=== PATIENT | female | born 1940 | race Two or more races ===

== ENCOUNTER → 2022-02-24 08:57 | Outpatient (BNVA) | payer MEDICARE, SELFPAY | PROVIDERS: PCP Internal Medicine; Visit Provider Psychiatry & Neurology Neurology | DX: F09 Unspecified mental disorder due to known physiological condition (principal); R51.9 Headache, unspecified; F41.9 Anxiety disorder, unspecified; F32.A Depression, unspecified; G24.3 Spasmodic torticollis; G89.29 Other chronic pain | CPT/HCPCS: 99202 ==

== ENCOUNTER 2022-03-10 12:57 | Outpatient (REF) | payer MEDICARE, SELFPAY ==
--- NOTE | ~2022-03-10 | MR_ITS ---
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 Self-reported posterior neck pain. COMPARISON: None TECHNIQUE: MRI of the cervical spine was obtained using routine sequences without contrast. FINDINGS: ALIGNMENT: The cervical spine is anatomically aligned. No spondylolisthesis or retrolisthesis. CRANIOCERVICAL JUNCTION/C1-C2 ARTICULATIONS: Intact and aligned. VISUALIZED INTRACRANIAL STRUCTURES: Within normal limits. VERTEBRAL BODIES: Normal height. DISC SPACES AND ENDPLATES: Moderate to severe intervertebral disc space height loss noted between C4-C5 and C6-C7 inclusive, with disc desiccation and kiiy-tm-sygreesq degrees of anterior marginal spondylosis and tiny Schmorl's nodes. Mild disc space height loss at C7-T1 with disc desiccation with similar findings at C3-C4 and C2-C3. BONE MARROW: No significant marrow-replacing process or bone marrow edema. SPINAL LEVELS: C2-C3: Shallow central disc protrusion noted without cord impingement or canal stenosis. Mild uncinate process spurring on the right with mild right-sided neural foraminal narrowing. C3-C4: Tiny central disc protrusion with minimal indentation of the ventral thecal sac without cord impingement or canal stenosis. Minor uncovertebral spurring noted without significant neural foraminal stenosis. C4-C5: Broad-based disc osteophyte complex noted, with effacement of the ventral dural sac abutting the ventral aspect of the spinal cord with mild ventral cord impingement. Nhqt-dg-wvrixvgo central spinal canal stenosis is noted. Bilateral uncovertebral spurring is noted with mild facet arthropathy bilaterally with moderate bilateral neural foraminal stenosis. C5-C6: Broad-based central disc protrusion and posterolateral disc osteophyte complex noted with effacement of the ventral dural sac resulting in moderate ventral cord impingement and moderate central spinal canal stenosis. Bilateral uncovertebral spurring is noted with minor facet arthropathy, with severe left-sided and moderate right-sided neural foraminal stenosis. C6-C7: Broad-based central disc protrusion noted, with effacement of the ventral dural sac which abuts the ventral aspect of the spinal cord, minimally indenting the ventral spinal cord with mild central spinal canal stenosis. There is bilateral uncovertebral spurring noted with moderate right-sided and moderate to severe left-sided neural foraminal stenosis. C7-T1: Small central extruded disc herniation noted with slight caudal migration and mild flattening of the central dural sac without cord impingement. No significant spinal canal stenosis. There is uncovertebral spurring bilaterally and there is a small right subarticular extruded disc herniation with slight cephalad migration. There is mild left-sided facet arthropathy with mild left-sided and xhow-cx-gvkehmez right-sided neural foraminal stenosis. T1-T2: Small, shallow central disc protrusion noted with minimal indentation of the ventral thecal sac without cord impingement or canal stenosis. There is a right subarticular extruded disc herniation with mild cephalad migration likely impinging on the exiting right T1 nerve root, best visualized on image 10 of series 3 and 4. SPINAL CORD: The cervical and visualized upper thoracic spinal cord is normal in signal intensity throughout, without focal lesion, edema or syrinx. EXTRACRANIAL SOFT TISSUES: The visualized extracranial head/neck soft tissues are unremarkable within the limitations of the study. MR/MR cervical spine wo con IMPRESSION: 1. Multilevel DDD and spondylosis, as described above, with multilevel disc herniations and disc osteophyte complexes. There is multilevel ventral cord impingement, most apparent at C5-C6 with moderate spinal canal stenosis at C5-C6, mild spinal canal stenosis at C6-C7 and offw-gp-cfarhkdd spinal canal stenosis at C4-C5. 2. Multilevel DJD as described above, with multilevel bilateral neural foraminal stenosis as detailed by level above. 3. Right subarticular extruded disc herniations at T1-T2 and C7-T1 possibly encroaching on the exiting right C8 and T1 nerve roots.
== END 2022-03-10 12:58 | disposition home or self-care (01) ==
LOC: HO.MRI 12:57
PROVIDERS: Visit Provider Psychiatry & Neurology Neurology
DX: M54.2 Cervicalgia (principal); R51.9 Headache, unspecified; G89.29 Other chronic pain; R29.2 Abnormal reflex; G24.3 Spasmodic torticollis
CPT/HCPCS: 72141

== ENCOUNTER → 2022-05-03 09:32 | Outpatient (BNVA) | payer MEDICARE, SELFPAY | PROVIDERS: PCP Internal Medicine; Visit Provider Psychiatry & Neurology Neurology | DX: F09 Unspecified mental disorder due to known physiological condition (principal); F41.9 Anxiety disorder, unspecified; F32.A Depression, unspecified; G24.3 Spasmodic torticollis; R51.9 Headache, unspecified; G89.29 Other chronic pain | CPT/HCPCS: 99212 ==

== ENCOUNTER → 2022-07-13 14:59 | Outpatient (BNVA) | payer MEDICARE, SELFPAY | PROVIDERS: PCP Internal Medicine; Visit Provider Psychiatry & Neurology Neurology | DX: F09 Unspecified mental disorder due to known physiological condition (principal); F41.9 Anxiety disorder, unspecified; F32.A Depression, unspecified; G24.3 Spasmodic torticollis; R51.9 Headache, unspecified; G89.29 Other chronic pain | CPT/HCPCS: 99212 ==

== ENCOUNTER → 2022-10-19 11:27 | Outpatient (BNVA) | payer MEDICARE, SELFPAY | PROVIDERS: PCP Internal Medicine; Visit Provider Psychiatry & Neurology Neurology | DX: G24.3 Spasmodic torticollis (principal); G89.29 Other chronic pain; R51.9 Headache, unspecified | CPT/HCPCS: 64616; 99211; J0585 ==

== ENCOUNTER → 2022-11-24 13:49 | Outpatient (BNVA) | payer MEDICARE, SELFPAY | PROVIDERS: PCP Internal Medicine; Visit Provider Psychiatry & Neurology Neurology | DX: G24.3 Spasmodic torticollis (principal); R51.9 Headache, unspecified; F09 Unspecified mental disorder due to known physiological condition; G89.29 Other chronic pain | CPT/HCPCS: 99212 ==

== ENCOUNTER → 2023-01-24 15:57 | Outpatient (BNVA) | payer MEDICARE, SELFPAY | PROVIDERS: PCP Internal Medicine; Visit Provider Psychiatry & Neurology Neurology | DX: G24.3 Spasmodic torticollis (principal); R51.9 Headache, unspecified; F09 Unspecified mental disorder due to known physiological condition; G89.29 Other chronic pain | CPT/HCPCS: 64616; 99211; J0585 ==

== ENCOUNTER 2023-05-10 13:56 | Outpatient (AMB) | payer MEDICARE, SELFPAY ==
--- NOTE | 2023-05-10 13:59 | MHC.OFFVIS ---
Intake Vital Signs 05/10/23 14:04 Height 5 ft 4 in Weight 116 lb BMI 19.9 BP 150/80 H Blood Pressure Location Lt brachial Position Sitting Pulse 76 Pulse Source Pulse Oximeter Pulse Oximetry (%) 98 Oxygen Delivery Method Room Air Intake Visit Reasons: Botox-lvm Intake Note: Pt presents today for botox Allergies No Known Allergies Allergy (Verified 05/10/23 14:06) Medication List - Last Reconciled 05/10/23 by Porsche Langston MD amlodipine 5 mg PO DAILY baclofen 20 mg (2 x 10 mg) PO BEDTIME cholecalciferol (vitamin D3) 50 mcg PO DAILY citalopram 40 mg PO DAILY gabapentin 300 mg (3 x 100 mg) PO DAILY lisinopril 20 mg PO DAILY magnesium oxide 400 mg PO DAILY memantine 28 mg PO DAILY onabotulinumtoxinA (Botox) to be injected by physician to neck muscles q 3 mths; HPI HPI Comments History of Present Illness Details 82y/o female comes for treatment of her cervical dystonia ? Side effects including spread of toxin effect, dysphagia, breathing difficulties , bronchitis etc was discussed in detail and the patient agreed to the procedure.An informed consent was obtained ??? Botulinum toxin type A 200units X 1 -was diluted with 4 cc of normal saline at a concentration of 25 units in 0.5cc saline. Lot number [id number] expiration 09/2025 ??? Muscles injected ??? chance Splenius - 25 units each ??? Chance levator 25 units each Chance trapezius 20 units each Chance semispinalis 5 unist each Chance temporlais 25 units each ? Total used 200 units PFSH Medical History Cervical spondylosis Osteopenia HTN (hypertension) Sacroiliitis Osteopenia Hyperlipidemia Diabetes Vulvar itching Hearing loss Anxiety Depression Subarachnoid hemorrhage Colloid cyst of third ventricle Vertigo FH: cholecystectomy Surgical History Hx of appendectomy H/O colonoscopy Family History Mother Diabetes Father Diabetes Sister FHx: stomach cancer Social History Alcohol intake: never Patient Tobacco Use Status: Never used Tobacco Physical Exam Vital Signs: Last Vital Signs Pulse 76 05/10/23 14:04 BP 150/80 H 05/10/23 14:04 Pulse Ox 98 05/10/23 14:04 Oxygen Delivery Method Room Air 05/10/23 14:04 BMI result Body Mass Index 19.9 Const General: cooperative, healthy appearing and anxious Nutritional Appearance: average body habitus HEENT Head: Yes normal to inspection, Yes normocephalic and Yes atraumatic Eyes Pupils: Equal, round and reactive pupils present Neck Other: dystonia severe tightness and tenderness in left splenius, levator Neuro Other: Cranial nerves: Yes CN's II-XII intact bilaterally, Yes Facial sensation intact/muscles of mastication intact, Yes Equal, round and reactive pupils present, Yes Bilaterally intact EOM present, Yes Normal facial strength present and Yes Midline tongue present Gait exam (Neuro): Other gait observations present (slow mild off balance) Coordination: jdafio-uv-yvlb test normal Psych Affect: Anxious affect present Office Procedures Botulinum toxin Injection 56542 - Dystonia Procedure code (CPT) selection complete Office Meds onabotulinumtoxinA 200 unit solution for injection Performing Provider: Porsche Langston MD Performing Location: [facility] [place] [facility] Administered by: Porsche Langston MD on 05/10/23 14:32 Dose Route Admin Location Dispensed Lot Number Expiration Date [facility] Senior Scheduler 200 unit IM 200 units [id number] 09/06/25 2914-0957-58 [employer]ER[employer]/BOTOX Comments: see HPI Assessment & Plan Assessment & Plan (1) 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 (2) Chronic headaches: Comment: likely cervicogenic Code(s): R51.9 - Headache, unspecified; G89.29 - Other chronic pain (3) 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 early dementia Code(s): F09 - Unspecified mental disorder due to known physiological condition Plan Patient tolerated the procedure well She will call with ay side effects Increase memantine to Xr 28mg qd Orders: Orders AMB Botulinum toxin Injection Today G24.3 - Spasmodic torticollis Coding Level of Care Code Est Pt Level 1 (94174) Diagnoses Spasmodic torticollis G24.3 Chronic headaches R51.9; G89.29 Cognitive disorder F09 CPT Codes Botox Injection - Botox 4: 95567 - Dystonia ([id number])
[2023-05-10 14:04] VITALS: BP 150/80; PULSE 76; O2SAT 98; BMI 19.9
== END 2023-05-10 14:28 | disposition home or self-care (01) ==
PROVIDERS: PCP Internal Medicine; Visit Provider Psychiatry & Neurology Neurology
DX: G24.3 Spasmodic torticollis (principal); R51.9 Headache, unspecified; G89.29 Other chronic pain; R41.89 Other symptoms and signs involving cognitive functions and awareness
CPT/HCPCS: 64616

== ENCOUNTER → 2023-05-10 13:56 | Outpatient (BNVA) | payer MEDICARE, SELFPAY | PROVIDERS: PCP Internal Medicine; Visit Provider Psychiatry & Neurology Neurology | DX: G24.3 Spasmodic torticollis (principal); M47.812 Spondylosis without myelopathy or radiculopathy, cervical region; R51.9 Headache, unspecified; G89.29 Other chronic pain; F09 Unspecified mental disorder due to known physiological condition | CPT/HCPCS: 64616; 99211; J0585 ==

== ENCOUNTER 2023-09-10 14:17 | Outpatient (AMB) | payer MEDICARE, SELFPAY ==
--- NOTE | 2023-09-10 14:25 | MHC.OFFVIS ---
Intake Vital Signs 09/10/23 14:26 Height 5 ft 4 in Weight 116 lb BMI 19.9 BP 104/56 L Blood Pressure Location Lt brachial Position Sitting Respiration 7 L Pulse 63 Pulse Source Pulse Oximeter Pulse Oximetry (%) 98 Oxygen Delivery Method Room Air Intake Visit Reasons: Botox - CONF Intake Note: Pt presents to the office for Botox injections. Forming Tube Selector Required: No Allergies No Known Allergies Allergy (Verified 09/10/23 14:49) Medication List - Last Reconciled 09/10/23 by Porsche Langston MD amlodipine 5 mg PO DAILY cholecalciferol (vitamin D3) 50 mcg PO DAILY citalopram 40 mg PO DAILY gabapentin 300 mg (3 x 100 mg) PO DAILY lisinopril 20 mg PO DAILY magnesium oxide 400 mg PO DAILY memantine 28 mg PO DAILY onabotulinumtoxinA (Botox) to be injected by physician to neck muscles q 3 mths; HPI HPI Comments History of Present Illness Details 82y/o female comes for follow up of neck pain, vertigo and headaches. she is accompanied by her daughter who helps with the history. she was trailed on botox to her neck muscle with no response. she is here for another session but says she had no response to her previous treatments. Her MRI C spine form 2021 showed multilevel deg changes with mild cord impingement.She started noticing short term memory issues about 1 year ago. she also has h/o vertigo and headaches. The headaches have increased recently.The headaches are mostly frontal and neck pain.she feels like pounding , with tinnitus, nausea. No light or noise sensitivity She has daily headaches and takes tylenol or motrin.. PFSH Medical History Cervical spondylosis Osteopenia HTN (hypertension) Sacroiliitis Osteopenia Hyperlipidemia Diabetes Vulvar itching Hearing loss Anxiety Depression Subarachnoid hemorrhage Colloid cyst of third ventricle Vertigo FH: cholecystectomy Surgical History Hx of appendectomy H/O colonoscopy Family History Mother Diabetes Father Diabetes Sister FHx: stomach cancer Social History Alcohol intake: never Patient Tobacco Use Status: Never used Tobacco Physical Exam Vital Signs: Last Vital Signs Pulse 63 09/10/23 14:26 Resp 7 L 09/10/23 14:26 BP 104/56 L 09/10/23 14:26 Pulse Ox 98 09/10/23 14:26 Oxygen Delivery Method Room Air 09/10/23 14:26 BMI result Body Mass Index 19.9 Const General: cooperative, healthy appearing and anxious Nutritional Appearance: average body habitus HEENT Head: Yes normal to inspection, Yes normocephalic and Yes atraumatic Eyes Pupils: Equal, round and reactive pupils present Neck Other: dystonia severe tightness and tenderness in left splenius, levator Neuro Other: Cranial nerves: Yes CN's II-XII intact bilaterally, Yes Facial sensation intact/muscles of mastication intact, Yes Equal, round and reactive pupils present, Yes Bilaterally intact EOM present, Yes Normal facial strength present and Yes Midline tongue present Gait exam (Neuro): Other gait observations present (slow mild off balance) Coordination: qtgghz-yo-akrz test normal Psych Affect: Anxious affect present Assessment & Plan Assessment & Plan (1) 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 (2) Chronic headaches: Comment: likely cervicogenic Code(s): R51.9 - Headache, unspecified; G89.29 - Other chronic pain (3) 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 early dementia Code(s): F09 - Unspecified mental disorder due to known physiological condition Plan Memantine to Xr 28mg qd Increase gabapentin 300mg bid Pain management refferal Orders: Referrals Pain Management Referral M47.812 - Spondylosis without myelopathy or radiculopathy, cervical region, M54.2 - Cervicalgia Medications: Changed From gabapentin 300 mg (3 x 100 mg) PO DAILY 90 caps 3RF To gabapentin 300 mg (3 x 100 mg) PO BID 180 caps 3RF Discontinued baclofen Discontinued Reason: Patient no longer taking 20 mg (2 x 10 mg) PO BEDTIME 60 tabs 6RF Coding Level of Care Code Est Pt Level 4 (73904) Diagnoses Spasmodic torticollis G24.3 Chronic headaches R51.9; G89.29 Cognitive disorder F09
[2023-09-10 14:26] VITALS: BP 104/56; PULSE 63; RESP 7; O2SAT 98; BMI 19.9
== END 2023-09-10 15:15 | disposition home or self-care (01) ==
PROVIDERS: PCP Internal Medicine; Visit Provider Psychiatry & Neurology Neurology
DX: G24.3 Spasmodic torticollis (principal); R51.9 Headache, unspecified; G89.29 Other chronic pain; G31.84 Mild cognitive impairment of uncertain or unknown etiology
CPT/HCPCS: 99214

== ENCOUNTER → 2023-09-10 14:17 | Outpatient (BNVA) | payer MEDICARE, SELFPAY | PROVIDERS: PCP Internal Medicine; Visit Provider Psychiatry & Neurology Neurology | DX: G24.3 Spasmodic torticollis (principal); G89.29 Other chronic pain; R51.9 Headache, unspecified; F09 Unspecified mental disorder due to known physiological condition; Z79.899 Other long term (current) drug therapy | CPT/HCPCS: 99212 ==

== ENCOUNTER 2023-09-19 14:49 | Outpatient (AMB) | payer MEDICARE, SELFPAY ==
--- NOTE | 2023-09-19 14:59 | A.OFFVIS_ITS ---
Intake Vital Signs 09/19/23 15:01 Height 5 ft 4 in Weight 112 lb 4 oz BMI 19.3 BP 113/54 L Blood Pressure Location Lt brachial Position Sitting Respiration 14 Pulse 68 Pulse Source Pulse Oximeter Pulse Oximetry (%) 98 Oxygen Delivery Method Room Air Intake Visit Reasons: CERVICALGIA - Confirmed Allergies No Known Allergies Allergy (Verified 09/19/23 14:58) HPI HPI Comments History of Present Illness Details Ilsa is a very pleasant 82-year-old [place]ic-speaking female who presents the office today, accompanied by her daughter, for evaluation and management of her chronic neck pain. Patient has been suffering with this pain for greater than 5 years. She was referred here from Neurology where she has undergone serial injections of Botox without improvement of her pain. She also complains of chronic, constant daily headaches and dizziness. Denies any chest pain, syncope, unilateral weakness or palpitations. Denies any recent falls. She is currently taking Tylenol as needed for the headaches with minimal improvement. She is tried muscle relaxers, gabapentin and nonsteroidal anti-inflammatory medication in the past without improvement of her symptoms. Patient reports that the symptoms improve only when she is lying down, her daughter is concerned that she is not very active due to the pain and she has also not been eating much because of the pain and dizziness. Patient denies numbness weakness or tingling of either upper extremity. Pain today is rated as a 10/10. Dizziness worsens when patient stands, she will close her eyes and this helps a little bit with the dizziness. She is unable to detail if it feels like she is spinning or if the room is spinning. In terms of muscle damage condition is described as aching, shooting, numb, stabbing, sharp, shocking, tingling, pins and needles. Pain is negatively impacting patient's enjoyment of life, general activity, mood and walking. PFSH Medical History Cervical spondylosis Osteopenia HTN (hypertension) Sacroiliitis Osteopenia Hyperlipidemia Diabetes Vulvar itching Hearing loss Anxiety Depression Subarachnoid hemorrhage Colloid cyst of third ventricle Vertigo FH: cholecystectomy Surgical History Hx of appendectomy H/O colonoscopy Family History Mother Diabetes Father Diabetes Sister FHx: stomach cancer Social History Alcohol intake: never Patient Tobacco Use Status: Never used Tobacco Review of Systems Const All systems reviewed & are unremarkable except as noted in HPI and below Physical Exam Vital Signs: Last Vital Signs Pulse 68 09/19/23 15:01 Resp 14 09/19/23 15:01 BP 113/54 L 09/19/23 15:01 Pulse Ox 98 09/19/23 15:01 Oxygen Delivery Method Room Air 09/19/23 15:01 BMI result Body Mass Index 19.3 General: awake, alert, answers questions appropriately. appears uncomfortable. Skin: warm, dry, intact HEENT: Normocephalic. Hearing intact. Cardiac: External chest normal in appearance. Respiratory: No cough, audible wheezing or stridor. Abdomen: without gross distension. MS: No obvious swelling or deformities. Limited cervical range of motion all planes with moderate pain increase Spurling positive RUE strength 5/5, 2+ biceps reflex, 2+ brachioradialis reflex LUE strength 5/5, 2+ biceps reflex, 2+ brachioradialis reflex Neurological: Thought process intact. Ambulates with assistance from daughter Results Reviewed Results Reviewed: 03/10/2022: MRI Cervical Spine FINDINGS: ALIGNMENT: The cervical spine is anatomically aligned. No spondylolisthesis or retrolisthesis. CRANIOCERVICAL JUNCTION/C1-C2 ARTICULATIONS: Intact and aligned. VISUALIZED INTRACRANIAL STRUCTURES: Within normal limits. VERTEBRAL BODIES: Normal height. DISC SPACES AND ENDPLATES: Moderate to severe intervertebral disc space height loss noted between C4-C5 and C6-C7 inclusive, with disc desiccation and pemh-ee-gkleccal degrees of anterior marginal spondylosis and tiny Schmorl's nodes. Mild disc space height loss at C7-T1 with disc desiccation with similar findings at C3-C4 and C2-C3. BONE MARROW: No significant marrow-replacing process or bone marrow edema. SPINAL LEVELS: C2-C3: Shallow central disc protrusion noted without cord impingement or canal stenosis. Mild uncinate process spurring on the right with mild right-sided neural foraminal narrowing. C3-C4: Tiny central disc protrusion with minimal indentation of the ventral thecal sac without cord impingement or canal stenosis. Minor uncovertebral spurring noted without significant neural foraminal stenosis. C4-C5: Broad-based disc osteophyte complex noted, with effacement of the ventral dural sac abutting the ventral aspect of the spinal cord with mild ventral cord impingement. Wpcw-qa-hkebwcrm central spinal canal stenosis is noted. Bilateral uncovertebral spurring is noted with mild facet arthropathy bilaterally with moderate bilateral neural foraminal stenosis. C5-C6: Broad-based central disc protrusion and posterolateral disc osteophyte complex noted with effacement of the ventral dural sac resulting in moderate ventral cord impingement and moderate central spinal canal stenosis. Bilateral uncovertebral spurring is noted with minor facet arthropathy, with severe left-sided and moderate right-sided neural foraminal stenosis. C6-C7: Broad-based central disc protrusion noted, with effacement of the ventral dural sac which abuts the ventral aspect of the spinal cord, minimally indenting the ventral spinal cord with mild central spinal canal stenosis. There is bilateral uncovertebral spurring noted with moderate right-sided and moderate to severe left-sided neural foraminal stenosis. C7-T1: Small central extruded disc herniation noted with slight caudal migration and mild flattening of the central dural sac without cord impingement. No significant spinal canal stenosis. There is uncovertebral spurring bilaterally and there is a small right subarticular extruded disc herniation with slight cephalad migration. There is mild left-sided facet arthropathy with mild left-sided and udds-qn-eflzxrxy right-sided neural foraminal stenosis. T1-T2: Small, shallow central disc protrusion noted with minimal indentation of the ventral thecal sac without cord impingement or canal stenosis. There is a right subarticular extruded disc herniation with mild cephalad migration likely impinging on the exiting right T1 nerve root, best visualized on image 10 of series 3 and 4. SPINAL CORD: The cervical and visualized upper thoracic spinal cord is normal in signal intensity throughout, without focal lesion, edema or syrinx. EXTRACRANIAL SOFT TISSUES: The visualized extracranial head/neck soft tissues are unremarkable within the limitations of the study. IMPRESSION: 1. Multilevel DDD and spondylosis, as described above, with multilevel disc herniations and disc osteophyte complexes. There is multilevel ventral cord impingement, most apparent at C5-C6 with moderate spinal canal stenosis at C5-C6, mild spinal canal stenosis at C6-C7 and pqgp-hj-ligphulx spinal canal stenosis at C4-C5. 2. Multilevel DJD as described above, with multilevel bilateral neural foraminal stenosis as detailed by level above. 3. Right subarticular extruded disc herniations at T1-T2 and C7-T1 possibly encroaching on the exiting right C8 and T1 nerve roots. Assessment & Plan Assessment & Plan (1) Dizziness: Code(s): R42 - Dizziness and giddiness (2) Cervical spondylosis: Code(s): M47.812 - Spondylosis without myelopathy or radiculopathy, cervical region (3) Chronic headaches: Comment: likely cervicogenic Code(s): R51.9 - Headache, unspecified; G89.29 - Other chronic pain (4) Cervical spinal stenosis: Code(s): M48.02 - Spinal stenosis, cervical region Irene Rosenbaum is a very pleasant 82-year-old female who presented to the office today for evaluation and management of her chronic neck pain and headaches. MRI from March 2022 reviewed, given patient's additional complaints of severe, worsening headaches and dizziness will order MRI/MRA head and neck to further evaluate. Concern for potential narrowing of arteries. Meclizine 12.5mg po TID as needed for dizziness Tizanidine 2mg po TID as needed, patient and daughter advised on cautions for use. After review of MRI will consider fluoroscopy guided diagnostic C4-C5 C6 MBBs with local anesthetic versus referral to neuro spine for evaluation. All questions and concerns are answered, patient and daughter agree with the plan. Follow-up after MRI/MRA. Orders: Orders MR cervical spine wo con Today G89.29 - Other chronic pain, M47.812 - Spondylosis without myelopathy or radiculopathy, cervical region, M48.02 - Spinal stenosis, cervical region, R42 - Dizziness and giddiness, R51.9 - Headache, unspecified MR angio neck wo/w con Today G89.29 - Other chronic pain, M47.812 - Spondylosis without myelopathy or radiculopathy, cervical region, M48.02 - Spinal stenosis, cervical region, R42 - Dizziness and giddiness, R51.9 - Headache, unspecified MR angio head wo/w con Today G89.29 - Other chronic pain, M48.02 - Spinal stenosis, cervical region, R42 - Dizziness and giddiness, R51.9 - Headache, unspecified Medications: New tizanidine may cause drowsiness 2 mg PO TID PRN 90 tabs 0RF muscle spasticity meclizine 12.5 mg PO TID PRN 30 tabs 0RF dizziness Coding Level of Care Code New Pt Level 4 (52154) Diagnoses Dizziness R42 Cervical spondylosis M47.812 Chronic headaches R51.9; G89.29 Cervical spinal stenosis M48.02
[2023-09-19 15:01] VITALS: BP 113/54; PULSE 68; RESP 14; O2SAT 98; BMI 19.3
== END 2023-09-19 15:35 | disposition home or self-care (01) ==
PROVIDERS: PCP Internal Medicine; Referring Provider Psychiatry & Neurology Neurology; Visit Provider Registered Nurse Emergency
DX: R42 Dizziness and giddiness (principal); M47.812 Spondylosis without myelopathy or radiculopathy, cervical region; R51.9 Headache, unspecified; G89.29 Other chronic pain; M48.02 Spinal stenosis, cervical region
CPT/HCPCS: 99204

== ENCOUNTER → 2023-09-19 14:49 | Outpatient (BNVA) | payer MEDICARE, SELFPAY | PROVIDERS: PCP Internal Medicine; Referring Provider Psychiatry & Neurology Neurology; Visit Provider Registered Nurse Emergency | DX: M48.02 Spinal stenosis, cervical region (principal); M47.812 Spondylosis without myelopathy or radiculopathy, cervical region; R42 Dizziness and giddiness; R51.9 Headache, unspecified; G89.29 Other chronic pain | CPT/HCPCS: 99202 ==

== ENCOUNTER 2023-10-24 15:01 | Outpatient (AMB) | payer MEDICARE, SELFPAY ==
[2023-10-24 15:07] VITALS: BP 103/47; PULSE 66; RESP 12; O2SAT 99; BMI 19.2
--- NOTE | 2023-10-24 15:07 | A.OFFVIS_ITS ---
Intake Vital Signs 10/24/23 15:07 Height 5 ft 4 in Weight 112 lb BMI 19.2 BP 103/47 L Blood Pressure Location Lt brachial Position Sitting Respiration 12 Pulse 66 Pulse Source Pulse Oximeter Pulse Oximetry (%) 99 Oxygen Delivery Method Room Air Intake Visit Reasons: MRI results Per. Hui Juarez Allergies No Known Allergies Allergy (Verified 10/24/23 15:08) Medication List - Last Reconciled 10/24/23 by Lilibeth Garner LPN celecoxib mg PO cholecalciferol (vitamin D3) 50 mcg PO DAILY citalopram 40 mg PO DAILY gabapentin 300 mg (3 x 100 mg) PO BID lisinopril 20 mg PO DAILY magnesium oxide 400 mg PO DAILY memantine 28 mg PO DAILY rosuvastatin 10 mg PO BEDTIME HPI HPI Comments History of Present Illness Details Ilsa is back in my office to evaluate the results of the MRI. The results of the MRI dictated as below. We sent her for MRA of the brain as well as MRI of the cervical spine. The patient's complains are on dizziness and upper posterior neck pain with radiation to the back of the head and into the occipital area. The MRI were discussed with the patient and her daughter today. The patient's daughter helped to interpret details of the conversation to the patient although the patient is herself able to speak minimal Fijian as well. On the MRI of the brain there is normal blood distribution. Therefore it is unlikely that brain ischemia such as TIA is a result of the patient's dizziness. Referral to ENT with dizziness symptoms maybe necessary to establish a proper cause of the condition. As of the MRI of the cervical spine most of the changes are described in C6-C7 and C5-C6 intervals. This is the lowest part of the cervical spine. The patient's complaint is mostly on the pain in the upper neck with radiation to the occipital area the pain is bilateral. There is no description of the joint conditions in the report of the MRI however the patient reports pain aggravation with flexing head forward and even more so flexing had backwards. She also reports pain aggravation with axial compression on the head. I believe that the major cause of patient's cervicalgia and occipital neuralgia is cervical facets C2-C3 and C3-C4 bilateral. I offered this patient bilateral diagnostic injection MBB C2, C3, C4. The patient agreed to go for the procedure. As of significant bilateral foraminal stenosis at C5-C6 and C6-C7 interval I would like this patient to be seen by a neurosurgeon. On physical exam bilateral brachioradialis and bilateral triceps reflexes are very brisk, there is also difficulty with 2 point discrimination on patient's hands which could be evidence of subtle sensation changes. Unlikely this patient needs surgery at current times however in the future if her condition will become more severe possibility foraminotomy or even disc replacement could be considered. We discussed medical management with this patient. Last time she was offered meclizine 12.5 mg and she reports minimal improvement on meclizine and no side effects. We agreed that I will start her on meclizine 25 mg. I also would like to introduced again tizanidine muscle relaxant small does to provide her with some pain relief. Prior: Chronic pain for 5 years. Neurology attempted to treat her with Botox injections with no success. Denies any chest pain, syncope, unilateral weakness or palpitations. Denies any recent falls. Tylenol gave patient minimal relief improvement. She is tried muscle relaxers, gabapentin and nonsteroidal anti-inflammatory medication in the past without improvement of her symptoms. Patient reports that the symptoms improve only when she is lying down, her daughter is concerned that she is not very active due to the pain and she has also not been eating much because of the pain and dizziness. Patient denies numbness weakness or tingling of either upper extremity. Dizziness worsens when patient stands, she will close her eyes and this helps a little bit with the dizziness. She is unable to detail if it feels like she is spinning or if the room is spinning. In terms of muscle damage condition is described as aching, shooting, numb, stabbing, sharp, shocking, tingling, pins and needles. Pain is negatively impacting patient's enjoyment of life, general activity, mood and walking. [facility] Medical History Cervical spondylosis Osteopenia HTN (hypertension) Sacroiliitis Osteopenia Hyperlipidemia Diabetes Vulvar itching Hearing loss Anxiety Depression Subarachnoid hemorrhage Colloid cyst of third ventricle Vertigo FH: cholecystectomy Surgical History Hx of appendectomy H/O colonoscopy Family History Mother Diabetes Father Diabetes Sister FHx: stomach cancer Social History Alcohol intake: never Patient Tobacco Use Status: Never used Tobacco Review of Systems Const All systems reviewed & are unremarkable except as noted in HPI and below Physical Exam Vital Signs: Last Vital Signs Pulse 66 10/24/23 15:07 Resp 12 10/24/23 15:07 BP 103/47 L 10/24/23 15:07 Pulse Ox 99 10/24/23 15:07 Oxygen Delivery Method Room Air 10/24/23 15:07 BMI result Body Mass Index 19.2 General: awake, alert, answers questions appropriately. appears uncomfortable. Skin: warm, dry, intact HEENT: Normocephalic. Hearing intact. Cardiac: External chest normal in appearance. Respiratory: No cough, audible wheezing or stridor. Abdomen: without gross distension. MS: No obvious swelling or deformities. Limited cervical range of motion all planes with moderate pain increase Spurling positive RUE strength 5/5, 2+ biceps reflex, 2+ brachioradialis reflex LUE strength 5/5, 2+ biceps reflex, 2+ brachioradialis reflex Two point discrimination is difficult for the patient on bilateral hands in distribution of C6 and C7 nerve roots. Neurological: Thought process intact. Ambulates with assistance from daughter Results Reviewed Results Reviewed: MRI brain with and without contrast MRI of the brain and the neck with and without contrast. Brain the bilateral internal carotid arteries are normal in course and caliber throughout there horizontal vertical cavernous and supra clinoidal segment The bilateral anterior cerebral arteries and their branch vessels are of normal course and caliber. The bilateral middle cerebral arteries and their branch vessels are of normal course and caliber. The bilateral posterior cerebral arteries are of normal course and caliber. The intracranial portion of the vertebrobasilar system are of normal course and caliber. There is mild scattered patchy areas of T2 prolongation within the subcortical and deep periventricular white matter suggesting of chronic microvascular ischemia reminder of the brain is unremarkable. Neck: A 3 was all arch is demonstrated. The bilateral common carotid and vertebral arteries are widely patent at their origins. The bilateral vertebral arteries are normal course and caliber throughout their extracranial portions. The bilateral common carotid arteries are of normal course and caliber. The left internal carotid artery is of normal course and caliber throughout its extracranial segments. The left external carotid artery is widely patent at its origin. The right internal carotid artery is of normal course and caliber throughout its extracranial segments. The right external carotid artery is widely patent at its origin. Impression: Unremarkable MRAs of the head and neck. There are no significant carotid stenosis by NASCET criteria. MRI cervical spine without contrast 09/24/2023 Findings normal cervical alignment is demonstrated. Vertebral heights are well- maintained. Craniocervical junction is unremarkable. Bone marrow signal is within normal limits, and no suspicious osseous lesions is identified. Prevertebral and paraspinal soft tissues are within normal limits. Visualized portions of the posterior fossa are unremarkable. Cervical cord demonstrates normal course caliber and signal characteristics. No epidural fluid collection or hematoma is identified. C2-C3: There is no significant disc herniation or protrusion. No central canal or neural foraminal stenosis. C3-C4 column there is a mild broad-based disc bulge effacing the ventral aspect of the thecal sac without abutting the cord without clinically significant central canal or neural foraminal stenosis. C4-C5: There is intervertebral disc space narrowing. Broad-based disc bulge effacing ventral aspect of thecal sac without a booking the cervical cord causing mild cervical central canal stenosis. There are large disc osteophyte complexes causing bilateral neural foraminal stenosis left worse than right encroaching upon the exiting left C5 nerve root C5-C6: There is intervertebral disc space narrowing. There is a large broad- based disc bulge effacing the ventral aspect of the thecal sac abutting the cervical cord causing moderate central canal stenosis. There are bilateral disc osteophyte complexes causing clinically significant bilateral neural foraminal stenosis encroaching upon exiting right and left C6 nerve root. C6-C7 there is intervertebral disc space narrowing. There is a large broad- based disc bulge effacing the ventral aspect of the thecal sac without a booking the cervical cord causing moderate cervical canal stenosis. There are large bilateral disc osteophyte complexes causing bilateral neural foraminal stenosis encroaching upon the exiting right and left C7 nerve roots. C7-T1 there is a mild broad-based disc bulge. No clinically significant central canal or neural foraminal stenosis. Assessment & Plan Assessment & Plan (1) Cervical spinal stenosis: Code(s): M48.02 - Spinal stenosis, cervical region (2) Dizziness: Code(s): R42 - Dizziness and giddiness (3) Cervical spondylosis: Code(s): M47.812 - Spondylosis without myelopathy or radiculopathy, cervical region (4) Neck pain: Code(s): M54.2 - Cervicalgia (5) Chronic headaches: Comment: likely cervicogenic Code(s): R51.9 - Headache, unspecified; G89.29 - Other chronic pain (6) Spondylosis of cervical joint without myelopathy: Comment: Upper cervical spine Code(s): M47.812 - Spondylosis without myelopathy or radiculopathy, cervical region (7) Spondylosis of cervical spine with radiculopathy: Comment: Lower cervical spine Code(s): M47.22 - Other spondylosis with radiculopathy, cervical region Plan: 1. I will refer this patient to ENT to rule out organic causes of dizziness. 2. I will refer this patient to neurosurgery to evaluate C6-C7 and C5-C6 bilateral foraminal stenosis. 3. I will schedule this patient for bilateral C2, C3, C4 diagnostic medial branch block. C3 PNS sprint will be offered to the patient with good results of the injection. 4. Next time we will see this patient after diagnostic medial branch block. Plan I here by testify that I spent 50 minutes discussing MRI with the daughter of the patient and patient herself, as well as evaluating patient's diagnostic reports, performing physical examination of the patient, planning this patient's care and organizing this note. Orders: Referrals Ear/Nose/Throat Referral R42 - Dizziness and giddiness Neurosurgery Referral M47.22 - Other spondylosis with radiculopathy, cervical region Medications: New meclizine 25 mg PO DAILY 30 days PRN 30 tabs 5RF motion sickness Changed From tizanidine may cause drowsiness 2 mg PO TID PRN 90 tabs 0RF muscle spasticity To tizanidine may cause drowsiness 2 mg PO TID 30 days PRN 30 tabs 5RF muscle spasticity From tizanidine may cause drowsiness 2 mg PO TID 30 days PRN 30 tabs 5RF muscle spasticity To tizanidine may cause drowsiness 2 mg PO BEDTIME 30 days PRN 30 tabs 5RF muscle spasticity Coding Level of Care Code Est Pt Level 5 (43889) Diagnoses Cervical spinal stenosis M48.02 Dizziness R42 Cervical spondylosis M47.812 Neck pain M54.2 Chronic headaches R51.9; G89.29 Spondylosis of cervical joint without myelopathy M47.812 Spondylosis of cervical spine with radiculopathy M47.22
== END 2023-10-24 16:19 | disposition home or self-care (01) ==
PROVIDERS: PCP Internal Medicine; Visit Provider Anesthesiology
DX: M48.02 Spinal stenosis, cervical region (principal); R42 Dizziness and giddiness; M47.812 Spondylosis without myelopathy or radiculopathy, cervical region; M54.2 Cervicalgia; R51.9 Headache, unspecified; G89.29 Other chronic pain; M47.22 Other spondylosis with radiculopathy, cervical region
CPT/HCPCS: 99215

== ENCOUNTER → 2023-10-24 15:01 | Outpatient (BNVA) | payer MEDICARE, SELFPAY | PROVIDERS: PCP Internal Medicine; Visit Provider Anesthesiology | DX: M48.02 Spinal stenosis, cervical region (principal); M47.812 Spondylosis without myelopathy or radiculopathy, cervical region; M54.2 Cervicalgia; M47.22 Other spondylosis with radiculopathy, cervical region; R42 Dizziness and giddiness; R51.9 Headache, unspecified; G89.29 Other chronic pain | CPT/HCPCS: 99212 ==

== ENCOUNTER 2023-11-13 14:51 | Outpatient (AMB) | payer MEDICARE, SELFPAY ==
[2023-11-13 14:57] VITALS: BP 118/72; PULSE 64; RESP 16; O2SAT 98; BMI 21.2
--- NOTE | 2023-11-13 14:57 | A.OFFVIS_ITS ---
Intake Vital Signs 11/13/23 14:57 Height 5 ft 4 in Weight 123 lb 6 oz BMI 21.2 BP 118/72 Blood Pressure Location Rt brachial Position Sitting Respiration 16 Pulse 64 Pulse Source Pulse Oximeter Pulse Oximetry (%) 98 Oxygen Delivery Method Room Air Intake Visit Reasons: follow up-LVM Intake Note: Pt presents to the office for a follow up of neck pain and headaches. Pt states she was referred to pain management at her last visit. [place] [facility] Required: No Allergies No Known Allergies Allergy (Verified 11/13/23 14:57) HPI HPI Comments History of Present Illness Details 83y/o female comes for follow up of nec k pain, vertigo and headaches. she is accompanied by her daughter who helps with the history. she was trailed on botox to her neck muscle with no response. she is here for another session but says she had no response to her previous treatments. she was seen by pain management - scheduled for bilateral C2, C3, C4 diagnostic medial branch block. C3 PNS sprint will be offered to the patient with good results of the injection. she had a neuropsych evaluation - was told she has dementia- will wait for r esults. Her MRI C spine form 2021 showed multilevel deg changes with mild cord impingement.She started noticing short term memory issues about 1 year ago. she also has h/o vertigo and headaches. The headaches have increased recently.The headaches are mostly frontal and neck pain.she feels like pounding , with tinnitus, nausea. No light or noise sensitivity She has daily headaches and takes tylenol or motrin.. PFSH Medical History Cervical spondylosis Osteopenia HTN (hypertension) Sacroiliitis Osteopenia Hyperlipidemia Diabetes Vulvar itching Hearing loss Anxiety Depression Subarachnoid hemorrhage Colloid cyst of third ventricle Vertigo FH: cholecystectomy Surgical History Hx of appendectomy H/O colonoscopy Family History Mother Diabetes Father Diabetes Sister FHx: stomach cancer Social History Alcohol intake: never Patient Tobacco Use Status: Never used Tobacco Physical Exam Vital Signs: Last Vital Signs Pulse 64 11/13/23 14:57 Resp 16 11/13/23 14:57 BP 118/72 11/13/23 14:57 Pulse Ox 98 11/13/23 14:57 Oxygen Delivery Method Room Air 11/13/23 14:57 BMI result Body Mass Index 21.2 Const General: cooperative, healthy appearing and anxious Nutritional Appearance: average body habitus HEENT Head: Yes normal to inspection, Yes normocephalic and Yes atraumatic Eyes Pupils: Equal, round and reactive pupils present Neck Other: dystonia severe tightness and tenderness in left splenius, levator Neuro Other: Cranial nerves: Yes CN's II-XII intact bilaterally, Yes Facial sensation intact/muscles of mastication intact, Yes Equal, round and reactive pupils present, Yes Bilaterally intact EOM present, Yes Normal facial strength present and Yes Midline tongue present Gait exam (Neuro): Other gait observations present (slow mild off balance) Coordination: [id number] test normal Psych Affect: Anxious affect present Assessment & Plan Assessment & Plan (1) 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 (2) Chronic headaches: Comment: likely cervicogenic Code(s): R51.9 - Headache, unspecified; G89.29 - Other chronic pain (3) 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 early dementia Code(s): F09 - Unspecified mental disorder due to known physiological condition Plan Memantine to Xr 28mg qd F/u pain management will call to discuss neuropsych report Coding Level of Care Code Est Pt Level 3 (41359) Diagnoses Spasmodic torticollis G24.3 Chronic headaches R51.9; G89.29 Cognitive disorder F09
== END 2023-11-13 15:27 | disposition home or self-care (01) ==
PROVIDERS: PCP Internal Medicine; Visit Provider Psychiatry & Neurology Neurology
DX: G24.3 Spasmodic torticollis (principal); R51.9 Headache, unspecified; G89.29 Other chronic pain; R41.89 Other symptoms and signs involving cognitive functions and awareness
CPT/HCPCS: 99213

== ENCOUNTER → 2023-11-13 14:51 | Outpatient (BNVA) | payer MEDICARE, SELFPAY | PROVIDERS: PCP Internal Medicine; Visit Provider Psychiatry & Neurology Neurology | DX: G24.3 Spasmodic torticollis (principal); R51.9 Headache, unspecified; G89.29 Other chronic pain; F09 Unspecified mental disorder due to known physiological condition | CPT/HCPCS: 99212 ==

== ENCOUNTER 2023-11-20 06:01 | Outpatient (REF) | payer MEDICARE, SELFPAY | END 2023-11-20 06:02 | disposition home or self-care (01) | LOC: CF 06:01 | PROVIDERS: Visit Provider Anesthesiology | DX: Z13.89 Encounter for screening for other disorder (principal) ==

== ENCOUNTER 2024-02-13 12:53 | Outpatient (AMB) | payer MEDICARE, SELFPAY ==
--- NOTE | 2024-02-13 13:14 | A.OFFVIS_ITS ---
Vital Signs 02/13/24 13:16 Height 5 ft 4 in Weight 131 lb 8 oz BMI 22.6 BP 116/60 Blood Pressure Location Rt brachial Position Sitting Respiration 16 Pulse 64 Pulse Source Palpation Intake Visit Reasons: BOTOX - Confirmed Intake Note: Pt presents for a 3 month follow up for chronic headaches. Negative Cutter Required: No Allergies No Known Allergies Allergy (Verified 02/13/24 13:15) Medication List - Last Reconciled 02/13/24 by Porsche Langston MD celecoxib mg PO cholecalciferol (vitamin D3) 50 mcg PO DAILY citalopram 40 mg PO DAILY gabapentin 300 mg (3 x 100 mg) PO BID lisinopril 20 mg PO DAILY magnesium oxide 400 mg PO DAILY meclizine 25 mg PO DAILY PRN 30 days meclizine 12.5 mg PO TID PRN memantine 28 mg PO DAILY minocycline 50 mg PO DAILY rosuvastatin 10 mg PO BEDTIME tizanidine 2 mg PO BEDTIME PRN 30 days tizanidine 4 mg PO BID PRN HPI Comments Details: 83y/o female comes for follow up of neck pain, vertigo and headaches. she is accompanied by her daughter who helps with the history. she was trialed on botox to her neck muscle with no response. she is here for another session but says she had no response to her previous treatments. she was seen by pain management - scheduled for bilateral C2, C3, C4 diagnostic medial branch block. C3 PNS sprint will be offered to the patient with good results of the injection.But on the day of the procedure she reported that she had no pain so was cancelled But today she reports pain in her shoulder and posterior neck . It is less frequent qod . Her MRI C spine form 2021 showed multilevel deg changes with mild cord impingement.She started noticing short term memory issues about 1 year ago. she also has h/o vertigo and headaches.3-4 /week The headaches have increased recently.The headaches are mostly frontal and neck pain.she feels like pounding , with tinnitus, nausea. No light or noise sensitivity She has daily headaches and takes tylenol or motrin.. Neuropsych testing is c/w dementia [facility] Medical History Cervical spondylosis Osteopenia HTN (hypertension) Sacroiliitis Osteopenia Hyperlipidemia Diabetes Vulvar itching Hearing loss Anxiety Depression Subarachnoid hemorrhage Colloid cyst of third ventricle Vertigo FH: cholecystectomy Surgical History Hx of appendectomy H/O colonoscopy Family History Mother Diabetes Father Diabetes Sister FHx: stomach cancer Social History Alcohol intake: never Patient Tobacco Use Status: Never used Tobacco Physical Exam Const General: cooperative, healthy appearing and anxious Nutritional Appearance: average body habitus HEENT Head: Yes normal to inspection, Yes normocephalic and Yes atraumatic Eyes Pupils: Equal, round and reactive pupils present Neck Other: dystonia severe tightness and tenderness in left splenius, levator Neuro Other: Cranial nerves: Yes CN's II-XII intact bilaterally, Yes Facial sensation intact/muscles of mastication intact, Yes Equal, round and reactive pupils present, Yes Bilaterally intact EOM present, Yes Normal facial strength present and Yes Midline tongue present Gait exam (Neuro): Other gait observations present (slow mild off balance) Coordination: [id number] test normal Psych Affect: Anxious affect present Assessment & Plan Assessment & Plan (1) 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 Category: Medical (2) Chronic headaches: Comment: likely cervicogenic Code(s): R51.9 - Headache, unspecified; G89.29 - Other chronic pain Category: Medical (3) 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 early dementia Code(s): F09 - Unspecified mental disorder due to known physiological condition Category: Medical Plan Memantine to Xr 28mg qd- reviewed neuropsych Decrease OTC pain meds Neck exercises will trial cyclobenzaprin 5mg qhs Medications: New cyclobenzaprine 5 mg PO BEDTIME 30 tabs 3RF Discontinued tizanidine may cause drowsiness Discontinued Reason: Doctor's Order 2 mg PO BEDTIME 30 days PRN 30 tabs 5RF muscle spasticity Coding Level of Care Code Est Pt Level 4 (62919) Diagnoses Spasmodic torticollis G24.3 Chronic headaches R51.9; G89.29 Cognitive disorder F09
[2024-02-13 13:16] VITALS: BP 116/60; PULSE 64; RESP 16; BMI 22.6
== END 2024-02-13 13:44 | disposition home or self-care (01) ==
PROVIDERS: PCP Internal Medicine; Visit Provider Psychiatry & Neurology Neurology
DX: G24.3 Spasmodic torticollis (principal); R51.9 Headache, unspecified; G89.29 Other chronic pain; R41.89 Other symptoms and signs involving cognitive functions and awareness
CPT/HCPCS: 99214

== ENCOUNTER → 2024-02-13 12:53 | Outpatient (BNVA) | payer MEDICARE, SELFPAY | PROVIDERS: PCP Internal Medicine; Visit Provider Psychiatry & Neurology Neurology | DX: G24.3 Spasmodic torticollis (principal); G89.29 Other chronic pain; R51.9 Headache, unspecified; F09 Unspecified mental disorder due to known physiological condition | CPT/HCPCS: 99212 ==

== ENCOUNTER 2024-08-22 14:32 | Outpatient (AMB) | payer MEDICARE, SELFPAY ==
--- NOTE | 2024-08-22 14:36 | MHC.OFFVIS ---
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 She is accompanied by her daughter who assists with [place] translation. They decline hospital provided medical interpretation. Since last visit she has completed the courses of tizanidine and meclizine. After completion of these medications her symptoms have worsened. They requesting refills of both medications at this time. Were previously scheduled for diagnostic injections, when patient arrived she was not having pain so these were canceled. They would like to proceed with injections at this time. Prior visit with Dr. Payne: Ilsa is back in my office to evaluate the results of the MRI. The results of the MRI dictated as below. We sent her for MRA of the brain as well as MRI of the cervical spine. The patient's complains are on dizziness and upper posterior neck pain with radiation to the back of the head and into the occipital area. The MRI were discussed with the patient and her daughter today. The patient's daughter helped to interpret details of the conversation to the patient although the patient is herself able to speak minimal [place] as well. On the MRI of the brain there is normal blood distribution. Therefore it is unlikely that brain ischemia such as TIA is a result of the patient's dizziness. Referral to ENT with dizziness symptoms maybe necessary to establish a proper cause of the condition. As of the MRI of the cervical spine most of the changes are described in C6-C7 and C5-C6 intervals. This is the lowest part of the cervical spine. The patient's complaint is mostly on the pain in the upper neck with radiation to the occipital area the pain is bilateral. There is no description of the joint conditions in the report of the MRI however the patient reports pain aggravation with flexing head forward and even more so flexing had backwards. She also reports pain aggravation with axial compression on the head. I believe that the major cause of patient's cervicalgia and occipital neuralgia is cervical facets C2-C3 and C3-C4 bilateral. I offered this patient bilateral diagnostic injection MBB C2, C3, C4. The patient agreed to go for the procedure. As of significant bilateral foraminal stenosis at C5-C6 and C6-C7 interval I would like this patient to be seen by a neurosurgeon. On physical exam bilateral brachioradialis and bilateral triceps reflexes are very brisk, there is also difficulty with 2 point discrimination on patient's hands which could be evidence of subtle sensation changes. Unlikely this patient needs surgery at current times however in the future if her condition will become more severe possibility foraminotomy or even disc replacement could be considered. We discussed medical management with this patient. Last time she was offered meclizine 12.5 mg and she reports minimal improvement on meclizine and no side effects. We agreed that I will start her on meclizine 25 mg. I also would like to introduced again tizanidine muscle relaxant small does to provide her with some pain relief. Prior: Chronic pain for 5 years. Neurology attempted to treat her with Botox injections with no success. Denies any chest pain, syncope, unilateral weakness or palpitations. Denies any recent falls. Tylenol gave patient minimal relief improvement. She is tried muscle relaxers, gabapentin and nonsteroidal anti-inflammatory medication in the past without improvement of her symptoms. Patient reports that the symptoms improve only when she is lying down, her daughter is concerned that she is not very active due to the pain and she has also not been eating much because of the pain and dizziness. Patient denies numbness weakness or tingling of either upper extremity. Dizziness worsens when patient stands, she will close her eyes and this helps a little bit with the dizziness. She is unable to detail if it feels like she is spinning or if the room is spinning. In terms of muscle damage condition is described as aching, shooting, numb, stabbing, sharp, shocking, tingling, pins and needles. Pain is negatively impacting patient's enjoyment of life, general activity, mood and walking. [facility] Medical History Cervical spondylosis Osteopenia HTN (hypertension) Sacroiliitis Osteopenia Hyperlipidemia Diabetes Vulvar itching Hearing loss Anxiety Depression Subarachnoid hemorrhage Colloid cyst of third ventricle Vertigo FH: cholecystectomy Surgical History Hx of appendectomy H/O colonoscopy Family History Mother Diabetes Father Diabetes Sister FHx: stomach cancer Social History Alcohol intake: never Patient Tobacco Use Status: Never used Tobacco Review of Systems Const All systems reviewed & are unremarkable except as noted in HPI and below Physical Exam Vital Signs: Last Vital Signs Pulse 72 08/22/24 14:40 BP 120/58 L 08/22/24 14:40 Pulse Ox 97 08/22/24 14:40 Oxygen Delivery Method Room Air 08/22/24 14:40 BMI result Body Mass Index 23.2 General: awake, alert, answers questions appropriately. appears uncomfortable. Skin: warm, dry, intact HEENT: Normocephalic. Hearing intact. Cardiac: External chest normal in appearance. Respiratory: No cough, audible wheezing or stridor. Abdomen: without gross distension. MS: No obvious swelling or deformities. Limited cervical range of motion all planes with moderate pain increase Spurling positive Tenderness midline cervical vertebra and cervical paraspinal muscles Neurological: Thought process intact. Ambulates with assistance from daughter Results Reviewed Results Reviewed: MRI brain with and without contrast MRI of the brain and the neck with and without contrast. Brain the bilateral internal carotid arteries are normal in course and caliber throughout there horizontal vertical cavernous and supra clinoidal segment The bilateral anterior cerebral arteries and their branch vessels are of normal course and caliber. The bilateral middle cerebral arteries and their branch vessels are of normal course and caliber. The bilateral posterior cerebral arteries are of normal course and caliber. The intracranial portion of the vertebrobasilar system are of normal course and caliber. There is mild scattered patchy areas of T2 prolongation within the subcortical and deep periventricular white matter suggesting of chronic microvascular ischemia reminder of the brain is unremarkable. Neck: A 3 was all arch is demonstrated. The bilateral common carotid and vertebral arteries are widely patent at their origins. The bilateral vertebral arteries are normal course and caliber throughout their extracranial portions. The bilateral common carotid arteries are of normal course and caliber. The left internal carotid artery is of normal course and caliber throughout its extracranial segments. The left external carotid artery is widely patent at its origin. The right internal carotid artery is of normal course and caliber throughout its extracranial segments. The right external carotid artery is widely patent at its origin. Impression: Unremarkable MRAs of the head and neck. There are no significant carotid stenosis by NASCET criteria. MRI cervical spine without contrast 09/24/2023 Findings normal cervical alignment is demonstrated. Vertebral heights are well-maintained. Craniocervical junction is unremarkable. Bone marrow signal is within normal limits, and no suspicious osseous lesions is identified. Prevertebral and paraspinal soft tissues are within normal limits. Visualized portions of the posterior fossa are unremarkable. Cervical cord demonstrates normal course caliber and signal characteristics. No epidural fluid collection or hematoma is identified. C2-C3: There is no significant disc herniation or protrusion. No central canal or neural foraminal stenosis. C3-C4 column there is a mild broad-based disc bulge effacing the ventral aspect of the thecal sac without abutting the cord without clinically significant central canal or neural foraminal stenosis. C4-C5: There is intervertebral disc space narrowing. Broad-based disc bulge effacing ventral aspect of thecal sac without a booking the cervical cord causing mild cervical central canal stenosis. There are large disc osteophyte complexes causing bilateral neural foraminal stenosis left worse than right encroaching upon the exiting left C5 nerve root C5-C6: There is intervertebral disc space narrowing. There is a large broad-based disc bulge effacing the ventral aspect of the thecal sac abutting the cervical cord causing moderate central canal stenosis. There are bilateral disc osteophyte complexes causing clinically significant bilateral neural foraminal stenosis encroaching upon exiting right and left C6 nerve root. C6-C7 there is intervertebral disc space narrowing. There is a large broad-based disc bulge effacing the ventral aspect of the thecal sac without a booking the cervical cord causing moderate cervical canal stenosis. There are large bilateral disc osteophyte complexes causing bilateral neural foraminal stenosis encroaching upon the exiting right and left C7 nerve roots. C7-T1 there is a mild broad-based disc bulge. No clinically significant central canal or neural foraminal stenosis. Assessment & Plan Assessment & Plan (1) Dizziness: Code(s): R42 - Dizziness and giddiness Category: Medical (2) Cervical spondylosis: Code(s): M47.812 - Spondylosis without myelopathy or radiculopathy, cervical region Category: Medical (3) Chronic headaches: Comment: likely cervicogenic Code(s): R51.9 - Headache, unspecified; G89.29 - Other chronic pain Category: Medical (4) Cervical spinal stenosis: Code(s): M48.02 - Spinal stenosis, cervical region Category: Medical Plan Patient presents back to the office today for follow-up neck pain Refill spent for meclizine 25 mg p.o. p.r.n. and tizanidine 2 mg p.o. p.r.n.. Patient advised on cautions for use Will schedule for fluoroscopy guided diagnostic bilateral C2-C3 C4 MBBs with local anesthetic All questions and concerns are answered, patient and daughter agree with the plan. Follow-up after procedure, sooner if needed Medications: Refilled meclizine 25 mg PO DAILY PRN 30 tabs 5RF motion sickness 30 days tizanidine may cause drowsiness 2 mg PO TID PRN 60 tabs 5RF muscle spasticity 30 days Discontinued cyclobenzaprine Discontinued Reason: Doctor's Order 5 mg PO BEDTIME 30 tabs 3RF Coding Level of Care Code Est Pt Level 3 (18462) Complex EM visit Add On G2211 Diagnoses Dizziness R42 Cervical spondylosis M47.812 Chronic headaches R51.9; G89.29 Cervical spinal stenosis M48.02
[2024-08-22 14:40] VITALS: BP 120/58; PULSE 72; O2SAT 97; BMI 23.2
== END 2024-08-22 14:57 | disposition home or self-care (01) ==
PROVIDERS: PCP Internal Medicine; Visit Provider Registered Nurse Emergency
DX: R42 Dizziness and giddiness (principal); M47.812 Spondylosis without myelopathy or radiculopathy, cervical region; R51.9 Headache, unspecified; G89.29 Other chronic pain; M48.02 Spinal stenosis, cervical region
CPT/HCPCS: 99213; G2211

== ENCOUNTER → 2024-08-22 14:32 | Outpatient (BNVA) | payer MEDICARE, SELFPAY | PROVIDERS: PCP Internal Medicine; Visit Provider Registered Nurse Emergency | DX: M47.812 Spondylosis without myelopathy or radiculopathy, cervical region (principal); M48.02 Spinal stenosis, cervical region; R42 Dizziness and giddiness; R51.9 Headache, unspecified; G89.29 Other chronic pain | CPT/HCPCS: 99212 ==

== ENCOUNTER 2024-11-04 06:10 | Outpatient (REF) | payer MEDICARE, SELFPAY ==
--- NOTE | ~2024-11-04 | FL_ITS ---
EXAMINATION: FL GUIDANCE ONLY HISTORY: M47.812 - Spondylosis without myelopathy or radiculopathy, cervical region COMPARISON: None available. TECHNIQUE: Fluoroscopy time: 0.6 minutes. Cumulative Dose: 3.44 mGy. DAP: 0.0466 mGym2 Images: 7. FINDINGS: Images demonstrate needles and contrast material in the neck bilaterally. FL/FL guidance in treatment room IMPRESSION: Fluoroscopy during procedure. Please see procedure report for additional information. Electronically signed by: Steffen Gonzales MD 11/04/2024 11:07 AM EDT
--- OUTSIDE RECORDS SUMMARY | 2024-11-04 06:13 | XMS_ITS | Clinical Summary ---
Author Organization [facility] [address] [facility] Address [address] [place] [phone] Phone Care Team Providers Care Dry Sand Molder Name Role Phone Angel Snow MD Primary Care Provider [phone] Allergies No known active allergies Medications diclofenac (VOLTAREN) 1 % topical gel Apply 4 g topically 4 times daily. 3 Active docusate sodium (COLACE) 100 mg capsule Take 100 mg by mouth 2 times daily. 0 Active gabapentin (NEURONTIN) 100 mg capsule Take 1 Capsule by mouth 3 times daily. 4 Active MAGNESIUM OXIDE ORAL TAKE 1 TABLET BY MOUTH EVERY DAY 4 Active meclizine (ANTIVERT) 12.5 mg tablet 4 Active memantine (NAMENDA XR) 28 mg extended release capsule Take 1 capsule (28 mg total) by mouth 1 (one) time each day. 3 Active minocycline (MINOCIN,DYNACI N) 50 mg capsule Take 1 capsule (50 mg total) by mouth 2 (two) times a day. 3 Active naproxen (NAPROSYN) 500 mg tablet Take 1 Tablet by mouth 2 times daily as needed for Pain. 4 Active citalopram (CeleXA) 40 mg tablet Take 1 tablet (40 mg total) by mouth 1 (one) time each day. 30 tablet 5 4 Active magnesium oxide (MAG-OX) 400 mg (241.3 elemental magnesium) tablet TAKE 1 TABLET BY MOUTH EVERY DAY 90 tablet 1 5 Active lisinopriL (PRINIVIL,ZESTR IL) 20 mg tablet Take 1 tablet (20 mg total) by mouth 1 (one) time each day. 90 tablet 1 5 Active rosuvastatin (CRESTOR) 10 mg tablet Take 1 tablet (10 mg total) by mouth 1 (one) time each day. 90 tablet 1 5 Active cholecalciferol (VITAMIN D-3) 50 mcg (2,000 unit) tablet Take 1 tablet (2,000 Units total) by mouth 1 (one) time each day. 90 tablet 1 5 Active celecoxib (CeleBREX) 50 mg capsule TAKE 1 CAPSULE BY MOUTH TWICE A DAY 180 capsule 1 5 Active QUEtiapine (SEROquel) 25 mg tablet TAKE 0.5 TABLETS BY MOUTH AT BEDTIME NEEDED FOR OTHER (INSOMNIA). 45 tablet 1 5 Active cyclobenzaprine (FLEXERIL) 5 mg tablet Take 1 tablet (5 mg total) by mouth 3 (three) times a day. 30 tablet 5 10/19/19 25 Active Problems Problem Noted Date Diagnosed Date Moderate dementia 08/19/2024 Diabetes mellitus 06/28/2024 Hyperlipidemia 06/28/2024 Vertigo 12/27/2020 Abnormal brain MRI 10/04/2020 Overview (06/28/2024): Brain MRI: 10/04/20: Rounded 8 mm fluid signal intensity structure at the roof of the 3rd ventricle. White Matter Changes. Neurosurgery consulted October 2020 who recommended repeat scan in 1 year. Episode of recurrent major depressive disorder 0 08/07/2018 Vulvar itching 01/24/2018 Overview (06/28/2024): Last Assessment & Plan: Discussed could be menopause, contact dermatitis, or autoimmune skin condition. She will return for biopsy. In the meantime, pt will use soaks and seal with coconut oil. Given a copy of [facility] guidelines to review. Hearing loss, sensorineural 06/05/2017 Overview (06/28/2024): Mild-mod b/l Osteopenia 04/06/2016 Sacroiliitis 07/27/2014 Anxiety 09/27/2009 HTN (hypertension) 09/27/2009 Overview (06/28/2024): Last Assessment & Plan: Reviewed with patient that her BP is significantly elevated today and that she needs to make an appt with her PCP to have this further evaluated and possibly meds adjusted. She understood and agreed. Referral placed to PCP. Encounters Date Type Department Care Team Description 09/04/2024 Telephone Adult Medicine [address] [phone] Angel Snow MD Family Problem 08/19/2024 3:30 PM EST Office Visit Adult Medicine [address] [phone] Angel Snow MD Diet-controlled diabetes mellitus (CMS/HCC) (Primary Dx); Pure hypercholesterolemia; Encounter for long-term (current) use of medications; Primary hypertension; Moderate dementia, unspecified dementia type, unspecified whether behavioral, psychotic, or mood disturbance or anxiety (CMS/HCC); Myofascial pain; Dystonia 08/19/2024 Telephone Adult Medicine [address] [phone] Angel Snow MD Forms/questionnaires from Last 3 Months Immunizations Name Administration Dates Next Due Influenza Quadravalent, MDCK , 0.5ml, preservative free (Flucelvax) 6mo and older 08/07/2018 Influenza Quadravalent, MDCK , 0.5ml, with preservative (Flucelvax) 6mo and older 06/05/2017 Influenza trivalent, 0.5mL (Fluad) 65yo and olde r 05/27/2019,05/04/2016 Pneumococcal conjugate 13 va lent (Prevnar 13, PCV13) 2mo and older 04/06/2016,12/30/2015 Pneumococcal polysaccharide 23 valent (Pneumovax 23) 2yo and older 05/27/2019 Zoster Live 12/30/2015 Surgical History Surgery Date Site/Laterality Comments CHOLECYSTECTOMY 2006 PROCEDURE: HISTORICAL CHOLECYSTECTOMY COLONOSCOPY 07/19/2007 PROCEDURE: [place] COLONOSCOPY FLX DX W/COLLJ SPEC WHEN PFRMD; COMMENT: Up to cecum, normal. Repeat in [address] Mancilla ESOPHAGOGASTRODUODENOSCOPY 10/12/2009 PROCEDURE: [place] EGD TRANSORAL BIOPSY SINGLE/MULTIPLE; COMMENT: Normal esophagus, gastritis-biopsy:chronic gastritis (H Pylori+), normal SB-biopsy: Nl APPENDECTOMY PROCEDURE: HISTORICAL APPENDECTOMY COLONOSCOPY 07/19/2007 PROCEDURE: HISTORICAL COLONOSCOPY; COMMENT: normal (Charo) OTHER SURGICAL HISTORY 07/26/2017 PROCEDURE: COLON CA SCRN NOT HI RSK IND; COMMENT: normal; would not repeat Medical History Medical History Date Comments Hypertension DX:Hypertension Diabetes mellitus (CMS/HCC) DX:D iabetes mellitus ([facility]) Hyperlipidemia DX:Hyperlipidemi a Anxiety DX:Anxiety Hearing loss, sensorineural 06/05/2017 DX:H earing loss, sensorineural; COMMENT: Mild-mod b/l Elevated LFTs 06/06/2017 DX:Elevated LFTs 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 (CMS/HCC) 08/07/2018 DX:Episode of recurrent abdirahman r depressive disorder ([facility]) Family History Medical History Relation Name Comments Diabetes Father Diabetes Mother Stomach cancer Sister Breast cancer Neg Hx Colon cancer Neg Hx Ovarian cancer Neg Hx Pancreatic cancer Neg Hx Prostate cancer Neg Hx Uterine cancer Neg Hx Relation Name Status Comments Father Mother Sister (Age 67) Social History Tobacco Use Types Packs/Day Years Used Date Smoking Tobacco: Never Smokeless Tobacco: Never Tobacco Cessation:Counseling Given: Not Answered Alcohol Use Standard Drinks/Week Comments No 0 (1 standard drink = 0.6 oz pur e alcohol) Comments No Sex and Gender Information Value Date Recorded Sex Assigned at Not on file Legal Sex Female 10:44 AM EST Gender Identity Not on file Sexual Orientation Not on file Obstetrics History Last Filed Vital Signs Vital Sign Reading Time Taken Comments Blood Pressure 100/60 08/19/2024 3:08 PM EST Pulse 64 08/19/2024 3:08 PM EST Temperature 36.8 ??C (98.3 ??F) 08/19/2024 3:08 PM ES T Respiratory Rate 14 08/19/2024 3:08 PM EST Oxygen Saturation - - Inhaled Oxygen Concentration - - Weight 61.2 kg (135 lb) 08/19/2024 3:08 PM EST Height 162.6 cm (5' 4 ) 08/19/2024 3:08 PM EST Body Mass Index 23.17 08/19/2024 3:08 PM EST Plan of Treatment Upcoming Encounters Date Type Department Care Team (Late st Contact Info) Description 02/23/2025 1:15 PM EDT Office Visit Adult Medicine [facility] [address] [place] [address] Angel Snow MD [address] [place] [address] Health Maintenance Due Date Last Done Comments Diabetes: Annual Foot Exam 1952 Diabetes: Annual Retina Eye Exam 1950 DTaP,Tdap,and Td Vaccines (1 - Tdap) 1961 Zoster Vaccines (2 of 3) 02/24/2016 12/30/2015 RSV Immunization Patients 60+ Years Old (1 - 1-dose 75+ series) 2017 Depression Screening 07/15/2022 Falls Risk Assessment 07/15/2022 Osteoporosis Screening (Bone Density Screening) 07/15/2022 Social Influencers of Health Screening 07/15/2022 Diabetes: Annual Urine Albumin-Creatinine Ratio (uACR) 03/16/2024 03/16/2023 COVID-19 Vaccine ( season) 2024 06/10/2021, 11/09/2020, 10/12/2020 Influenza Vaccine (#1) 2024 9, 08/07/2018, 06/05/2017, Additional history exists Diabetes: Blood Sugar Control Test (HGBA1C) 02/16/2025 08/19/2024, 02/15/2024, 02/15/2024 Diabetes: Annual GFR (Glomerular Filtration Rate) 08/19/2025 08/19/2024, 02/15/2024, 02/15/2024 Hypertension/CHF/CAD Annual BMP Blood Test 08/19/2025 08/19/2024, 02/15/2024, 02/15/2024 Cholesterol Screening (Lipid Panel) 08/19/2029 08/19/2024, 02/15/2024, 02/15/2024 Pneumococcal Vaccine: 50+ Years Completed 05/27/2019, 04/06/2016, 12/30/2015 HIB Vaccines Aged Out No longer eligi ble based on patient's age to complete this topic HPV Vaccines Aged Out No longer eligi ble based on patient's age to complete this topic Hepatitis A Vaccines Aged Out No long er eligible based on patient's age to complete this topic Hepatitis B Vaccines Aged Out No long er eligible based on patient's age to complete this topic IPV Vaccines Aged Out No longer eligi ble based on patient's age to complete this topic MMR Vaccines Aged Out No longer eligi ble based on patient's age to complete this topic Meningococcal ACWY Vaccine Aged Out N o longer eligible based on patient's age to complete this topic Meningococcal B Vacine Aged Out No lo nger eligible based on patient's age to complete this topic RSV Immunization Patients Under 20 months Aged Out No longer eligible based on patient's age to complete this topic Varicella Vaccines Aged Out No longer eligible based on patient's age to complete this topic Procedures Procedure Name Priority Date/Time Associated Diagnosis Comments HEMOGLOBIN A1C Routine 08/19/2024 4:29 PM EST Diet-controlled diabetes mellitus ([facility]) LIPID PANEL WITH REFLEX TO DIRECT LDL Routine 08/19/2024 4:29 PM EST Diet-controlled diabetes mellitus ([facility]) Pure hypercholesterolemia COMPREHENSIVE METABOLIC PANEL Routine 08/19/2024 4:29 PM EST Diet-controlled diabetes mellitus ([facility]) Encounter for long-term (current) use of medications Primary hypertension HM URINE ALBUMIN CREATININE RATIO Routine 03/16/2023 from Last 3 Months or Most Recently Relevant to Health Maintenance Results * (ABNORMAL) Lipid panel with reflex to direct LDL (08/19/2024 4:29 PM EST) Cholesterol 251(H) 0 - 200 mg/dL LAB CHEMISTRY METHOD 08/19/2024 7:47 PM EST [facility] Triglycerides 80 0 - 150 mg/dL LAB CHEMISTRY METHOD 08/19/2024 7:47 PM EST [facility] HDL 99 >=40 mg/dL LAB CHEMISTRY METHOD 08/19/2024 7:47 PM [facility] LDL Calculated 136(H) 0 - 100 mg/dL LAB CHEMISTRY METHOD 08/19/2024 7:47 PM [facility] VLDL Cholesterol Bubba 16 mg/dL LAB CHEMISTRY METHOD 08/19/2024 7:47 PM [facility] Non HDL Chol. (LDL+VLDL) 152(H) <145 mg/dL LAB CHEMISTRY METHOD 08/19/2024 7:47 PM [facility] Chol/HDL Ratio 2.5 0.0 - 4.4 LAB CHEMISTRY METHOD 08/19/2024 7:47 PM [facility] Blood Venous blood specimen / Unknown Venipuncture / Unknown 08/19/2024 4:29 PM EST 08/19/2024 4:29 PM EST us Angel Snow MD LAB BLOOD ORDERABLES Final Resu lt [facility] [address] [place] [address], * Hemoglobin A1c (08/19/2024 4:29 PM EST) Hemoglobin A1C 6.1 <6.5 % LAB CHEMISTRY METHOD 08/19/2024 9:34 PM EST [facility] Mean Bld Glu Estim. 128 mg/dL LAB CHEMISTRY METHOD 08/19/2024 9:34 PM EST [facility] Blood Venous blood specimen / Unknown Venipuncture / Unknown 08/19/2024 4:29 PM EST 08/19/2024 4:29 PM EST us Angel Snow MD LAB BLOOD ORDERABLES Final Resu lt [facility] [address] [place] [address], [place] [phone] * (ABNORMAL) Comprehensive metabolic panel (08/19/2024 4:29 PM EST) Sodium 142 133 - 145 mmol/L LAB CHEMISTRY METHOD 08/19/2024 7:41 PM EST [facility] Potassium 3.9 3.5 - 5.5 mmol/L LAB CHEMISTRY METHOD 08/19/2024 7:41 PM [facility] Chloride 109 96 - 110 mmol/L LAB CHEMISTRY METHOD 08/19/2024 7:41 PM EST [facility] CO2 29 21 - 32 mmol/L LAB CHEMISTRY METHOD 08/19/2024 7:41 PM [facility] Anion Gap 4 3 - 11 LAB CHEMISTRY METHOD 08/19/2024 7:41 PM [facility] Glucose 118(H) 70 - 100 mg/dL LAB CHEMISTRY METHOD 08/19/2024 7:41 PM [facility] BUN 20 5 - 25 mg/dL LAB CHEMISTRY METHOD 08/19/2024 7:41 PM [facility] Creatinine 0.74 0.50 - 1.10 mg/dL LAB CHEMISTRY METHOD 08/19/2024 7:41 PM [facility] eGFR 81 >=60 mL/min/1. 73m2 LAB CHEMISTRY METHOD 08/19/2024 7:41 PM [facility] Comment:Calculation based on the??Chronic Kidney Disease Epidemiology Collaboration (CKD-EPI) equation refit??without adjustment for race. BUN/Creatinine Ratio 27.0 LAB CHEMISTRY METHOD 08/19/2024 7:41 PM [facility] Calcium 9.8 8.5 - 10.5 mg/dL LAB CHEMISTRY METHOD 08/19/2024 7:41 PM [facility] AST (SGOT) 21 10 - 42 unit/L LAB CHEMISTRY METHOD 08/19/2024 7:41 PM [facility] ALT (SGPT) 24 10 - 60 unit/L LAB CHEMISTRY METHOD 08/19/2024 7:41 PM [facility] Alkaline Phosphatase 54 42 - 121 unit/L LAB CHEMISTRY METHOD 08/19/2024 7:41 PM [facility] Total Protein 6.8 6.0 - 8.0 g/dL LAB CHEMISTRY METHOD 08/19/2024 7:41 PM [facility] Albumin 4.0 3.2 - 5.0 g/dL LAB CHEMISTRY METHOD 08/19/2024 7:41 PM [facility] Total Bilirubin 0.4 0.0 - 1.4 mg/dL LAB CHEMISTRY METHOD 08/19/2024 7:41 PM [facility] Blood Venous blood specimen / Unknown Venipuncture / Unknown 08/19/2024 4:29 PM EST 08/19/2024 4:29 PM EST Angel Snow MD LAB BLOOD ORDERABLES Final Resu lt [facility] [address] [place] [address], * Urine Albumin Creatinine Ratio (03/16/2023) Urine Albumin Creatinine Ratio ABSTRACTED Historical Provider HEALTH MAINTENANCE Final Result from Last 3 Months or Most Recently Relevant to Health Maintenance Insurance [facility] MEDICAID ADVANTAGE Care Teams Dry Sand Molder Relationship Specialty Start Date End Date Angel Snow MD [address] [place] [phone] PCP - General Internal Medicine 04/02/19
--- OUTSIDE RECORDS SUMMARY | 2024-11-04 06:13 | XMS_ITS | Clinical Summary ---
Author Organization [facility] Address [address] [place] [address] Care Team Providers Care Industry Operations Investigator Name Role Phone Angel Snow MD Primary Care Provider [phone] Social History Tobacco Use Types Packs/Day Years Used Date Smoking Tobacco: Never Assessed Sex and Gender Information Value Date Recorded Sex Assigned at Not on file Gender Identity Not on file Sexual Orientation Not on file Plan of Treatment Health Maintenance Due Date Last Done Comments COVID-19 Vaccine (#1) 03/31/1941 Depression Screening 1954 Preventative Health Evaluation 1960 DTap / Tdap / Td (1 - Tdap) 1961 Shingrix-Zoster Vaccine (1 of 2) 1992 Fall Risk Assessment 2007 Osteoporosis Screening (DEXA Scan) 2007 RSV Adult > 60+ Yrs or (1 - 1-dose 75+ series) 2017 Influenza Vaccine (#1) 2024 9, 08/07/2018, 06/05/2017, Additional history exists Pneumococcal Vaccine Completed 05/27/2019, 04/06/20 16 Hepatitis B Vaccines Aged Out No long er eligible based on patient's age to complete this topic RSV Ped < 20 months Aged Out No longe r eligible based on patient's age to complete this topic Care Teams Industry Operations Investigator Relationship Specialty Start Date End Date Angel Snow MD PCP - General Internal Medicine 10/13/20
== END 2024-11-04 06:11 | disposition home or self-care (01) ==
LOC: CF 06:10
PROVIDERS: Visit Provider Anesthesiology
DX: M47.812 Spondylosis without myelopathy or radiculopathy, cervical region (principal)
CPT/HCPCS: 64490; 64491; J2003; J2795

== ENCOUNTER 2024-11-04 07:54 | Outpatient (AMB) | payer MEDICARE, SELFPAY ==
--- OUTSIDE RECORDS SUMMARY | 2024-11-04 07:56 | XMS_ITS | Clinical Summary ---
Author Organization [facility] Address [address] [place] [address] Care Team Providers Care Regulatory Affairs Internship Name Role Phone Angel Snow MD Primary Care Provider [phone] Social History Tobacco Use Types Packs/Day Years [...] age to complete this topic Care Teams Regulatory Affairs Internship Relationship Specialty Start Date End Date Angel Snow MD PCP - General Internal Medicine 10/13/20
--- OUTSIDE RECORDS SUMMARY | 2024-11-04 07:56 | XMS_ITS | Clinical Summary ---
Author Organization [facility] [address] [facility] Address [address] [place] [phone] Phone Care Team Providers Care Copy Director Name Role Phone Angel Snow MD Primary Care Provider [phone] Allergies No known active allergies Medications diclofenac [...] with coconut oil. Given a copy of [facility] guidelines to review. Hearing loss, sensorineural 06/05/2017 [...] Care Team Description 09/04/2024 Telephone Adult Medicine [address] [phone] Angel Snow MD Family Problem 08/19/2024 3:30 PM EST Office Visit Adult Medicine [address] [phone] Angel Snow MD Diet-controlled diabetes mellitus (CMS/HCC) (Primary Dx); Pure hypercholesterolemia; Encounter for long-term (current) use of medications; Primary hypertension; Moderate dementia, unspecified dementia type, unspecified whether behavioral, psychotic, or mood disturbance or anxiety (CMS/HCC); Myofascial pain; Dystonia 08/19/2024 Telephone Adult Medicine [address] [phone] Angel Snow MD Forms/questionnaires from Last 3 [...] 2006 PROCEDURE: HISTORICAL CHOLECYSTECTOMY COLONOSCOPY 07/19/2007 PROCEDURE: [place] COLONOSCOPY FLX DX W/COLLJ SPEC WHEN PFRMD; COMMENT: Up to cecum, normal. Repeat in [address] Mancilla ESOPHAGOGASTRODUODENOSCOPY 10/12/2009 PROCEDURE: [place] EGD TRANSORAL BIOPSY SINGLE/MULTIPLE; COMMENT: Normal esophagus, gastritis-biopsy:chronic gastritis (H Pylori+), normal SB-biopsy: Nl APPENDECTOMY PROCEDURE: HISTORICAL APPENDECTOMY COLONOSCOPY 07/19/2007 PROCEDURE: HISTORICAL COLONOSCOPY; COMMENT: normal (Charo) OTHER SURGICAL HISTORY 07/26/2017 PROCEDURE: COLON CA SCRN NOT HI RSK IND; COMMENT: normal; would not repeat Medical History Medical History Date Comments Hypertension DX:Hypertension Diabetes mellitus (CMS/HCC) DX:D iabetes mellitus (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) Family History Medical History Relation Name Comments [...] 1:15 PM EDT Office Visit Adult Medicine [facility] [address] [place] [address] Angel Snow MD [address] [place] [address] Health Maintenance Due Date Last Done Comments [...] 08/19/2024 4:29 PM EST Diet-controlled diabetes mellitus ([facility]) LIPID PANEL WITH REFLEX TO DIRECT LDL Routine 08/19/2024 4:29 PM EST Diet-controlled diabetes mellitus ([facility]) Pure hypercholesterolemia COMPREHENSIVE METABOLIC PANEL Routine 08/19/2024 4:29 PM EST Diet-controlled diabetes mellitus ([facility]) Encounter for long-term (current) use of medications Primary hypertension HM URINE ALBUMIN CREATININE RATIO Routine 03/16/2023 from Last 3 Months or Most Recently Relevant to Health Maintenance Results * (ABNORMAL) Lipid panel with reflex to direct LDL (08/19/2024 4:29 PM EST) Cholesterol 251(H) 0 - 200 mg/dL LAB CHEMISTRY METHOD 08/19/2024 7:47 PM EST [facility] Triglycerides 80 0 - 150 mg/dL LAB CHEMISTRY METHOD 08/19/2024 7:47 PM EST [facility] HDL 99 >=40 mg/dL LAB CHEMISTRY METHOD 08/19/2024 7:47 PM [facility] LDL Calculated 136(H) 0 - 100 mg/dL LAB CHEMISTRY METHOD 08/19/2024 7:47 PM [facility] VLDL Cholesterol Bubba 16 mg/dL LAB CHEMISTRY METHOD 08/19/2024 7:47 PM [facility] Non HDL Chol. (LDL+VLDL) 152(H) <145 mg/dL LAB CHEMISTRY METHOD 08/19/2024 7:47 PM [facility] Chol/HDL Ratio 2.5 0.0 - 4.4 LAB CHEMISTRY METHOD 08/19/2024 7:47 PM [facility] Blood Venous blood specimen / Unknown Venipuncture / Unknown 08/19/2024 4:29 PM EST 08/19/2024 4:29 PM EST us Angel Snow MD LAB BLOOD ORDERABLES Final Resu lt [facility] [address] [place] [address], * Hemoglobin A1c (08/19/2024 4:29 PM EST) Hemoglobin A1C 6.1 <6.5 % LAB CHEMISTRY METHOD 08/19/2024 9:34 PM EST [facility] Mean Bld Glu Estim. 128 mg/dL LAB CHEMISTRY METHOD 08/19/2024 9:34 PM EST [facility] Blood Venous blood specimen / Unknown Venipuncture / Unknown 08/19/2024 4:29 PM EST 08/19/2024 4:29 PM EST us Angel Snow MD LAB BLOOD ORDERABLES Final Resu lt [facility] [address] [place] [address], [place] [phone] * (ABNORMAL) Comprehensive metabolic panel (08/19/2024 4:29 PM EST) Sodium 142 133 - 145 mmol/L LAB CHEMISTRY METHOD 08/19/2024 7:41 PM EST [facility] Potassium 3.9 3.5 - 5.5 mmol/L LAB CHEMISTRY METHOD 08/19/2024 7:41 PM [facility] Chloride 109 96 - 110 mmol/L LAB CHEMISTRY METHOD 08/19/2024 7:41 PM EST [facility] CO2 29 21 - 32 mmol/L LAB CHEMISTRY METHOD 08/19/2024 7:41 PM [facility] Anion Gap 4 3 - 11 LAB CHEMISTRY METHOD 08/19/2024 7:41 PM [facility] Glucose 118(H) 70 - 100 mg/dL LAB CHEMISTRY METHOD 08/19/2024 7:41 PM [facility] BUN 20 5 - 25 mg/dL LAB CHEMISTRY METHOD 08/19/2024 7:41 PM [facility] Creatinine 0.74 0.50 - 1.10 mg/dL LAB CHEMISTRY METHOD 08/19/2024 7:41 PM [facility] eGFR 81 >=60 mL/min/1. 73m2 LAB CHEMISTRY METHOD 08/19/2024 7:41 PM [facility] Comment:Calculation based on the??Chronic Kidney Disease Epidemiology Collaboration (CKD-EPI) equation refit??without adjustment for race. BUN/Creatinine Ratio 27.0 LAB CHEMISTRY METHOD 08/19/2024 7:41 PM [facility] Calcium 9.8 8.5 - 10.5 mg/dL LAB CHEMISTRY METHOD 08/19/2024 7:41 PM [facility] AST (SGOT) 21 10 - 42 unit/L LAB CHEMISTRY METHOD 08/19/2024 7:41 PM [facility] ALT (SGPT) 24 10 - 60 unit/L LAB CHEMISTRY METHOD 08/19/2024 7:41 PM [facility] Alkaline Phosphatase 54 42 - 121 unit/L LAB CHEMISTRY METHOD 08/19/2024 7:41 PM [facility] Total Protein 6.8 6.0 - 8.0 g/dL LAB CHEMISTRY METHOD 08/19/2024 7:41 PM [facility] Albumin 4.0 3.2 - 5.0 g/dL LAB CHEMISTRY METHOD 08/19/2024 7:41 PM [facility] Total Bilirubin 0.4 0.0 - 1.4 mg/dL LAB CHEMISTRY METHOD 08/19/2024 7:41 PM [facility] Blood Venous blood specimen / Unknown Venipuncture / Unknown 08/19/2024 4:29 PM EST 08/19/2024 4:29 PM EST Angel Snow MD LAB BLOOD ORDERABLES Final Resu lt [facility] [address] [place] [address], * Urine Albumin Creatinine Ratio (03/16/2023) Urine Albumin Creatinine Ratio ABSTRACTED Historical Provider HEALTH MAINTENANCE Final Result from Last 3 Months or Most Recently Relevant to Health Maintenance Insurance [facility] MEDICAID ADVANTAGE Care Teams Copy Director Relationship Specialty Start Date End Date Angel Snow MD [address] [place] [phone] PCP - General Internal Medicine 04/02/19
[2024-11-04 08:08] VITALS: BP 183/71; PULSE 70; RESP 156; O2SAT 100
--- NOTE | 2024-11-04 08:08 | MHC.OFFVIS ---
Vital Signs 11/04/24 08:08 11/04/24 09:26 BP 183/71 H 152/74 H Blood Pressure Location Lt brachial Rt brachial Position Sitting Sitting Respiration 156 H 16 Pulse 70 69 Pulse Source Pulse Oximeter Pulse Oximeter Pulse Oximetry (%) 100 98 Oxygen Delivery Method Room Air Room Air Intake Visit Reasons: BILATERAL DIAGNOSTIC C2, C3, C4 MBB Switchboard Manager Required: Yes Switchboard Manager Services: Switchboard Manager Offered & Declined Switchboard Manager Name: Prefers daughter and radio division officer Allergies No Known Allergies Allergy (Verified 11/04/24 08:09) Medication List - Last Reconciled 11/04/24 by Lilibeth Garner LPN celecoxib mg PO cholecalciferol (vitamin D3) 50 mcg PO DAILY citalopram 40 mg PO DAILY gabapentin 300 mg (3 x 100 mg) PO BID lisinopril 20 mg PO DAILY magnesium oxide 400 mg PO DAILY meclizine 25 mg PO DAILY PRN 30 days memantine 28 mg PO DAILY minocycline 50 mg PO DAILY rosuvastatin 10 mg PO BEDTIME tizanidine 2 mg PO TID PRN 30 days PFS Medical History Cervical spondylosis Osteopenia HTN (hypertension) Sacroiliitis Osteopenia Hyperlipidemia Diabetes Vulvar itching Hearing loss Anxiety Depression Subarachnoid hemorrhage Colloid cyst of third ventricle Vertigo FH: cholecystectomy Surgical History Hx of appendectomy H/O colonoscopy Family History Mother Diabetes Father Diabetes Sister FHx: stomach cancer Social History Alcohol intake: never Patient Tobacco Use Status: Never used Tobacco Physical Exam Vital Signs: Last Vital Signs Pulse 69 11/04/24 09:26 Resp 16 11/04/24 09:26 BP 152/74 H 11/04/24 09:26 Pulse Ox 98 11/04/24 09:26 Oxygen Delivery Method Room Air 11/04/24 09:26 Assessment & Plan Assessment & Plan (1) Spondylosis of cervical joint without myelopathy: Comment: Upper cervical spine Code(s): M47.812 - Spondylosis without myelopathy or radiculopathy, cervical region Category: Medical Plan Bilateral diagnostic cervical medial branch block C2-C3 - C4. Informed consent was thoroughly explained to the patient. Risks and benefits were explained as risk of bleeding infection peripheral nerve damage spinal cord damage and headache. The patient was taken to the operating room and positioned prone on operating table. The posterior neck was prepped with ChloraPrep and draped with sterile utility towels. C-arm was brought over the operating field and picture of the C2-C3 and C4 vertebra were delineated on the screen. bilateral lateral masses of this vertebras were chosen as target of the injection. The positioned of the waistline of each of the lateral mass was chosen at the endpoint of the needle advancement. After that projection of those points to the skin was injected with small amount of mixture of lidocaine 2% and ropivacaine 0.5% one-to-one. After that three 22 gauge 3-1/2 inch needles were driven to the point of interest in tunnel vision fashion 1st on the right and after that on the left until the tip of the needle gently contacted the bone. Injection of the contrast was performed delineating no intrathecal and no intravascular spread of the contrast. After that small amount of local anesthetic less than 1 cc ropivacaine 0.5% was injected into each needle. Upon completion of the procedure needle was removed sterile Band-Aids were applied. Patient tolerated procedure well. Orders: Orders: Orders FL guidance in treatment room Today M47.812 - Spondylosis without myelopathy or radiculopathy, cervical region Coding Level of Care Code Procedure Only Diagnoses Spondylosis of cervical joint without myelopathy M47.812
[2024-11-04 09:26] VITALS: BP 152/74; PULSE 69; RESP 16; O2SAT 98
== END 2024-11-04 09:19 | disposition home or self-care (01) ==
LOC: HO.PMCPRC 07:54
PROVIDERS: PCP Internal Medicine; Visit Provider Anesthesiology
DX: M47.812 Spondylosis without myelopathy or radiculopathy, cervical region (principal)
CPT/HCPCS: 64490; 64491

== ENCOUNTER 2024-11-07 09:54 | Outpatient (AMB) | payer MEDICARE, SELFPAY ==
--- NOTE | 2024-11-07 10:07 | MHC.OFFVIS ---
Vital Signs 11/07/24 10:08 Height 5 ft 4 in Weight 134 lb BMI 23.0 BP 142/61 H Blood Pressure Location Rt brachial Position Sitting Pulse 76 Pulse Source Pulse Oximeter Pulse Oximetry (%) 97 Oxygen Delivery Method Room Air Intake Visit Reasons: BILATERAL DIAGNOSTIC C2, C3, C4 MBB Head Cager Required: No Allergies No Known Allergies Allergy (Verified 11/07/24 10:09) Medication List - Last Reconciled 11/07/24 by Stephanie Cardona, [employer]E [employer]ING [employer]ER celecoxib mg PO cholecalciferol (vitamin D3) 50 mcg PO DAILY citalopram 40 mg PO DAILY gabapentin 300 mg (3 x 100 mg) PO BID lisinopril 20 mg PO DAILY magnesium oxide 400 mg PO DAILY meclizine 25 mg PO DAILY PRN 30 days memantine 28 mg PO DAILY minocycline 50 mg PO DAILY rosuvastatin 10 mg PO BEDTIME tizanidine 2 mg PO TID PRN 30 days HPI Comments Details: The patient is an 84-year-old female presenting 3 days s/p bilateral diagnostic C3 C4 C5 MBBs. She underwent cervical injections to address symptoms of cervical osteoarthritis which had previously led to persistent headaches and neck pain. Post-injection, she reports approximately 80% relief of symptoms, including a reduction in headache frequency and severity for at least 8 hours. However, she presents with soreness at the injection sites, notably on the left side, accompanied by localized pain and muscle tension in the left trapezius muscle. The patient distinctly differentiates this post-procedural soreness from the pain associated with her initial condition. No exacerbation of the primary osteoarthritic pain has been reported, with current complaints centered on post-injection site soreness and the accompanying muscle tension. - Onset & Timing: Immediate post-procedural soreness following cervical injections - Quality & Character: Soreness, localized discomfort - Primary Location: Injection site on the left side of the neck, associated left trapezius - Exacerbating Factors: None explicitly mentioned - Relieving Factors: Temporary relief with Tylenol and topical treatments like Voltaren - Functional Impact: Primarily affects the same-side muscle tension, no report of interference with head movement or generalized neck activities - Affect: Patient reports being fine in general, improved mood with pain relief - Analgesia: Tylenol provides relief; goal is to minimize soreness at the injection site - Adverse Effects: No adverse effects from Tylenol or topical treatments reported - Activities of Daily Living: No major functional impairment noted, but localized soreness noted - Aberrant Drug-Related Behaviors: None reported or suspected Prior: Patient presents back to the office today for follow-up neck pain. She is accompanied by her daughter who assists with [place] translation. They decline hospital provided medical interpretation. Since last visit she has completed the courses of tizanidine and meclizine. After completion of these medications her symptoms have worsened. They requesting refills of both medications at this time. Were previously scheduled for diagnostic injections, when patient arrived she was not having pain so these were canceled. They would like to proceed with injections at this time. Prior visit with Dr. Payne: Ilsa is back in my office to evaluate the results of the MRI. The results of the MRI dictated as below. We sent her for MRA of the brain as well as MRI of the cervical spine. The patient's complains are on dizziness and upper posterior neck pain with radiation to the back of the head and into the occipital area. The MRI were discussed with the patient and her daughter today. The patient's daughter helped to interpret details of the conversation to the patient although the patient is herself able to speak minimal [place] as well. On the MRI of the brain there is normal blood distribution. Therefore it is unlikely that brain ischemia such as TIA is a result of the patient's dizziness. Referral to ENT with dizziness symptoms maybe necessary to establish a proper cause of the condition. As of the MRI of the cervical spine most of the changes are described in C6-C7 and C5-C6 intervals. This is the lowest part of the cervical spine. The patient's complaint is mostly on the pain in the upper neck with radiation to the occipital area the pain is bilateral. There is no description of the joint conditions in the report of the MRI however the patient reports pain aggravation with flexing head forward and even more so flexing had backwards. She also reports pain aggravation with axial compression on the head. I believe that the major cause of patient's cervicalgia and occipital neuralgia is cervical facets C2-C3 and C3-C4 bilateral. I offered this patient bilateral diagnostic injection MBB C2, C3, C4. The patient agreed to go for the procedure. As of significant bilateral foraminal stenosis at C5-C6 and C6-C7 interval I would like this patient to be seen by a neurosurgeon. On physical exam bilateral brachioradialis and bilateral triceps reflexes are very brisk, there is also difficulty with 2 point discrimination on patient's hands which could be evidence of subtle sensation changes. Unlikely this patient needs surgery at current times however in the future if her condition will become more severe possibility foraminotomy or even disc replacement could be considered. We discussed medical management with this patient. Last time she was offered meclizine 12.5 mg and she reports minimal improvement on meclizine and no side effects. We agreed that I will start her on meclizine 25 mg. I also would like to introduced again tizanidine muscle relaxant small does to provide her with some pain relief. Prior: Chronic pain for 5 years. Neurology attempted to treat her with Botox injections with no success. Denies any chest pain, syncope, unilateral weakness or palpitations. Denies any recent falls. Tylenol gave patient minimal relief improvement. She is tried muscle relaxers, gabapentin and nonsteroidal anti-inflammatory medication in the past without improvement of her symptoms. Patient reports that the symptoms improve only when she is lying down, her daughter is concerned that she is not very active due to the pain and she has also not been eating much because of the pain and dizziness. Patient denies numbness weakness or tingling of either upper extremity. Dizziness worsens when patient stands, she will close her eyes and this helps a little bit with the dizziness. She is unable to detail if it feels like she is spinning or if the room is spinning. In terms of muscle damage condition is described as aching, shooting, numb, stabbing, sharp, shocking, tingling, pins and needles. Pain is negatively impacting patient's enjoyment of life, general activity, mood and walking. [facility] Medical History Cervical spondylosis Osteopenia HTN (hypertension) Sacroiliitis Osteopenia Hyperlipidemia Diabetes Vulvar itching Hearing loss Anxiety Depression Subarachnoid hemorrhage Colloid cyst of third ventricle Vertigo FH: cholecystectomy Surgical History Hx of appendectomy H/O colonoscopy Family History Mother Diabetes Father Diabetes Sister FHx: stomach cancer Social History Alcohol intake: never Patient Tobacco Use Status: Never used Tobacco Review of Systems Const Details: - Musculoskeletal: Reports soreness at the injection site on the neck and pain in the left trapezius muscle - Neurological: Reports significant relief from chronic headaches post-procedure Physical Exam Vital Signs: Last Vital Signs Pulse 76 11/07/24 10:08 BP 142/61 H 11/07/24 10:08 Pulse Ox 97 11/07/24 10:08 Oxygen Delivery Method Room Air 11/07/24 10:08 BMI result Body Mass Index 23.0 General: awake, alert, answers questions appropriately. appears uncomfortable. Skin: warm, dry, intact HEENT: Normocephalic. Hearing intact. Cardiac: External chest normal in appearance. Respiratory: No cough, audible wheezing or stridor. Abdomen: without gross distension. MS: No obvious swelling or deformities. Tenderness to palpation over left middle Trapezius with palpable trigger points Neurological: Thought process intact. Ambulates with assistance from daughter Results Reviewed Results Reviewed: MRI brain with and without contrast MRI of the brain and the neck with and without contrast. Brain the bilateral internal carotid arteries are normal in course and caliber throughout there horizontal vertical cavernous and supra clinoidal segment The bilateral anterior cerebral arteries and their branch vessels are of normal course and caliber. The bilateral middle cerebral arteries and their branch vessels are of normal course and caliber. The bilateral posterior cerebral arteries are of normal course and caliber. The intracranial portion of the vertebrobasilar system are of normal course and caliber. There is mild scattered patchy areas of T2 prolongation within the subcortical and deep periventricular white matter suggesting of chronic microvascular ischemia reminder of the brain is unremarkable. Neck: A 3 was all arch is demonstrated. The bilateral common carotid and vertebral arteries are widely patent at their origins. The bilateral vertebral arteries are normal course and caliber throughout their extracranial portions. The bilateral common carotid arteries are of normal course and caliber. The left internal carotid artery is of normal course and caliber throughout its extracranial segments. The left external carotid artery is widely patent at its origin. The right internal carotid artery is of normal course and caliber throughout its extracranial segments. The right external carotid artery is widely patent at its origin. Impression: Unremarkable MRAs of the head and neck. There are no significant carotid stenosis by NASCET criteria. MRI cervical spine without contrast 09/24/2023 Findings normal cervical alignment is demonstrated. Vertebral heights are well-maintained. Craniocervical junction is unremarkable. Bone marrow signal is within normal limits, and no suspicious osseous lesions is identified. Prevertebral and paraspinal soft tissues are within normal limits. Visualized portions of the posterior fossa are unremarkable. Cervical cord demonstrates normal course caliber and signal characteristics. No epidural fluid collection or hematoma is identified. C2-C3: There is no significant disc herniation or protrusion. No central canal or neural foraminal stenosis. C3-C4 column there is a mild broad-based disc bulge effacing the ventral aspect of the thecal sac without abutting the cord without clinically significant central canal or neural foraminal stenosis. C4-C5: There is intervertebral disc space narrowing. Broad-based disc bulge effacing ventral aspect of thecal sac without a booking the cervical cord causing mild cervical central canal stenosis. There are large disc osteophyte complexes causing bilateral neural foraminal stenosis left worse than right encroaching upon the exiting left C5 nerve root C5-C6: There is intervertebral disc space narrowing. There is a large broad-based disc bulge effacing the ventral aspect of the thecal sac abutting the cervical cord causing moderate central canal stenosis. There are bilateral disc osteophyte complexes causing clinically significant bilateral neural foraminal stenosis encroaching upon exiting right and left C6 nerve root. C6-C7 there is intervertebral disc space narrowing. There is a large broad-based disc bulge effacing the ventral aspect of the thecal sac without a booking the cervical cord causing moderate cervical canal stenosis. There are large bilateral disc osteophyte complexes causing bilateral neural foraminal stenosis encroaching upon the exiting right and left C7 nerve roots. C7-T1 there is a mild broad-based disc bulge. No clinically significant central canal or neural foraminal stenosis. Assessment & Plan Assessment & Plan (1) Dizziness: Code(s): R42 - Dizziness and giddiness Category: Medical (2) Cervical spondylosis: Code(s): M47.812 - Spondylosis without myelopathy or radiculopathy, cervical region Category: Medical (3) Chronic headaches: Comment: likely cervicogenic Code(s): R51.9 - Headache, unspecified; G89.29 - Other chronic pain Category: Medical (4) Cervical spinal stenosis: Code(s): M48.02 - Spinal stenosis, cervical region Category: Medical Plan The patient will continue with Tylenol for post-injection soreness. A lidocaine cream or equivalent will be trialed to manage muscle-related discomfort, particularly in the left trapezius. Consideration of Sprint PNS procedure was discussed to potentially extend long-term relief, pending insurance clearance. Follow-up will prioritize reinforcement of effective pain management strategies without further procedural interventions unless soreness persists beyond a reasonable recovery time post-injection. The discussion also included a possible non- or minimally-invasive attempt at further symptom relief, such as muscle relaxants or alternative topical options, were these to prove ineffective. During our consultation, we extensively discussed the efficacy of recent cervical injections, noting approximately an 80% relief from chronic headaches and neck pain secondary to cervical osteoarthritis. Post-procedure, soreness localized to the injection site was acknowledged, and potential interventions such as topical analgesics and neurostimulation were evaluated. I highlighted the neurostimulation procedure benefits, including long-term relief up to a year and prompt retrieval if discomfort arises. We agreed that muscle relaxants would not be prioritized considering previous inefficacy. Lidocaine and similar formulations received consensus approval should traditional methods fail to resolve current discomfort within a suitable timeframe. The patient is aware of follow-up procedures contingent upon insurance and the assessment of emerging results regarding initial interventions. Patient was informed and verbally consented to the use of an ambient scribe for clinic note documentation during this visit. Medications: New lidocaine HCl-menthol 4-1 % (Icy Hot Max (lidocaine HCl-menthol)) 1 appl topical BID PRN 76.5 grams 3RF pain Patient Instructions: - Continue taking Tylenol as needed for post-injection soreness. - Try using lidocaine cream or Salonpas patches for muscle soreness. - Avoid extensive physical exertion on the neck to allow for post-procedure recovery. - Contact us if soreness persists or worsens. - Ensure all communications with insurance regarding potential neurostimulation approval are promptly completed. - Follow up with our office as scheduled for procedure assessment and progression. - Report any emergent symptoms or alterations in usual headache patterns. Coding Level of Care Code Est Pt Level 3 (66774) Complex EM visit Add On G2211 Diagnoses Dizziness R42 Cervical spondylosis M47.812 Chronic headaches R51.9; G89.29 Cervical spinal stenosis M48.02
[2024-11-07 10:08] VITALS: BP 142/61; PULSE 76; O2SAT 97; BMI 23.0
--- OUTSIDE RECORDS SUMMARY | 2024-11-07 11:10 | XMS_ITS | Clinical Summary ---
Author Organization [facility] Address [address] [place] [phone] Phone Care Team Providers Care Children Counselor Name Role Phone Angel Snow MD Primary Care Provider [phone] Allergies No known active allergies Medications diclofenac [...] with coconut oil. Given a copy of [facility] guidelines to review. Hearing loss, sensorineural [...] Team Description 09/04/2024 Telephone Adult Medicine [address] [phone] Angel Snow MD Family Problem 08/19/2024 3:30 PM EST Office Visit Adult Medicine [address] [phone] Angel Snow MD Diet-controlled diabetes mellitus (CMS/HCC) (Primary Dx); Pure hypercholesterolemia; Encounter for long-term (current) use of medications; Primary hypertension; Moderate dementia, unspecified dementia type, unspecified whether behavioral, psychotic, or mood disturbance or anxiety (CMS/HCC); Myofascial pain; Dystonia 08/19/2024 Telephone Adult Medicine [address] [phone] Angel Snow MD Forms/questionnaires from Last 3 [...] 2006 PROCEDURE: HISTORICAL CHOLECYSTECTOMY COLONOSCOPY 07/19/2007 PROCEDURE: CT COLONOSCOPY FLX DX W/COLLJ SPEC WHEN PFRMD; COMMENT: Up to cecum, normal. Repeat in [address] Mancilla ESOPHAGOGASTRODUODENOSCOPY 10/12/2009 PROCEDURE: CT EGD TRANSORAL BIOPSY SINGLE/MULTIPLE; COMMENT: Normal esophagus, gastritis-biopsy:chronic gastritis (H Pylori+), normal SB-biopsy: Nl APPENDECTOMY PROCEDURE: HISTORICAL APPENDECTOMY COLONOSCOPY 07/19/2007 PROCEDURE: HISTORICAL COLONOSCOPY; COMMENT: normal (Charo) OTHER SURGICAL HISTORY 07/26/2017 PROCEDURE: COLON CA SCRN NOT HI RSK IND; COMMENT: normal; would not repeat Medical History Medical History Date Comments Hypertension DX:Hypertension Diabetes mellitus (CMS/HCC) DX:D iabetes mellitus ([facility]) Hyperlipidemia DX:Hyperlipidemi a Anxiety DX:Anxiety Hearing loss, sensorineural 06/05/2017 DX:H earing loss, sensorineural; COMMENT: Mild-mod b/l Elevated LFTs 06/06/2017 DX:Elevated LFTs 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 (CMS/HCC) 08/07/2018 DX:Episode of recurrent abdirahman r depressive disorder ([facility]) Family History Medical History Relation Name Comments [...] 1:15 PM EDT Office Visit Adult Medicine [facility] [address] [place] [address] Angel Snow MD [address] [place] [address] Health Maintenance Due Date Last Done Comments Diabetes: Annual Foot Exam 1950 Diabetes: Annual Retina Eye Exam 1950 DTaP,Tdap,and Td Vaccines (1 - Tdap) 1961 Zoster Vaccines (2 of 3) 02/24/2016 12/30/2015 RSV Immunization Adult Patients (1 - 1-dose 75+ series) 2017 Depression [...] 08/19/2024 4:29 PM EST Diet-controlled diabetes mellitus ([facility]) LIPID PANEL WITH REFLEX TO DIRECT LDL Routine 08/19/2024 4:29 PM EST Diet-controlled diabetes mellitus ([facility]) Pure hypercholesterolemia COMPREHENSIVE METABOLIC PANEL Routine 08/19/2024 4:29 PM EST Diet-controlled diabetes mellitus ([facility]) Encounter for long-term (current) use of medications Primary hypertension HM URINE ALBUMIN CREATININE RATIO Routine 03/16/2023 from Last 3 Months or Most Recently Relevant to Health Maintenance Results * (ABNORMAL) Lipid panel with reflex to direct LDL (08/19/2024 4:29 PM EST) Cholesterol 251(H) 0 - 200 mg/dL LAB CHEMISTRY METHOD 08/19/2024 7:47 PM EST [facility] Triglycerides 80 0 - 150 mg/dL LAB CHEMISTRY METHOD 08/19/2024 7:47 PM EST [facility] HDL 99 >=40 mg/dL LAB CHEMISTRY METHOD 08/19/2024 7:47 PM EST [facility] LDL Calculated 136(H) 0 - 100 mg/dL LAB CHEMISTRY METHOD 08/19/2024 7:47 PM EST [facility] VLDL Cholesterol Bubba 16 mg/dL LAB CHEMISTRY METHOD 08/19/2024 7:47 PM EST [facility] Non HDL Chol. (LDL+VLDL) 152(H) <145 mg/dL LAB CHEMISTRY METHOD 08/19/2024 7:47 PM [facility] Chol/HDL Ratio 2.5 0.0 - 4.4 LAB CHEMISTRY METHOD 08/19/2024 7:47 PM [facility] Blood Venous blood specimen / Unknown Venipuncture / Unknown 08/19/2024 4:29 PM EST 08/19/2024 4:29 PM EST us Angel Snow MD LAB BLOOD ORDERABLES Final Resu lt Performing Organization Address City/[facility]/ZIP Co de Phone Number [facility] [address] [place] [address], * Hemoglobin A1c (08/19/2024 4:29 PM EST) Hemoglobin A1C 6.1 <6.5 % LAB CHEMISTRY METHOD 08/19/2024 9:34 PM EST [facility] Mean Bld Glu Estim. 128 mg/dL LAB CHEMISTRY METHOD 08/19/2024 9:34 PM EST [facility] Blood Venous blood specimen / Unknown Venipuncture / Unknown 08/19/2024 4:29 PM EST 08/19/2024 4:29 PM EST us Angel Snow MD LAB BLOOD ORDERABLES Final Resu lt [facility] [address] [place] [address], [place] [phone] * (ABNORMAL) Comprehensive metabolic panel (08/19/2024 4:29 PM EST) Sodium 142 133 - 145 mmol/L LAB CHEMISTRY METHOD 08/19/2024 7:41 PM EST [facility] Potassium 3.9 3.5 - 5.5 mmol/L LAB CHEMISTRY METHOD 08/19/2024 7:41 PM [facility] Chloride 109 96 - 110 mmol/L LAB CHEMISTRY METHOD 08/19/2024 7:41 PM EST [facility] CO2 29 21 - 32 mmol/L LAB CHEMISTRY METHOD 08/19/2024 7:41 PM [facility] Anion Gap 4 3 - 11 LAB CHEMISTRY METHOD 08/19/2024 7:41 PM [facility] Glucose 118(H) 70 - 100 mg/dL LAB CHEMISTRY METHOD 08/19/2024 7:41 PM [facility] BUN 20 5 - 25 mg/dL LAB CHEMISTRY METHOD 08/19/2024 7:41 PM [facility] Creatinine 0.74 0.50 - 1.10 mg/dL LAB CHEMISTRY METHOD 08/19/2024 7:41 PM [facility] eGFR 81 >=60 mL/min/1. 73m2 LAB CHEMISTRY METHOD 08/19/2024 7:41 PM [facility] Comment:Calculation based on the??Chronic Kidney Disease Epidemiology Collaboration (CKD-EPI) equation refit??without adjustment for race. BUN/Creatinine Ratio 27.0 LAB CHEMISTRY METHOD 08/19/2024 7:41 PM [facility] Calcium 9.8 8.5 - 10.5 mg/dL LAB CHEMISTRY METHOD 08/19/2024 7:41 PM [facility] AST (SGOT) 21 10 - 42 unit/L LAB CHEMISTRY METHOD 08/19/2024 7:41 PM [facility] ALT (SGPT) 24 10 - 60 unit/L LAB CHEMISTRY METHOD 08/19/2024 7:41 PM [facility] Alkaline Phosphatase 54 42 - 121 unit/L LAB CHEMISTRY METHOD 08/19/2024 7:41 PM [facility] Total Protein 6.8 6.0 - 8.0 g/dL LAB CHEMISTRY METHOD 08/19/2024 7:41 PM [facility] Albumin 4.0 3.2 - 5.0 g/dL LAB CHEMISTRY METHOD 08/19/2024 7:41 PM [facility] Total Bilirubin 0.4 0.0 - 1.4 mg/dL LAB CHEMISTRY METHOD 08/19/2024 7:41 PM [facility] Blood Venous blood specimen / Unknown Venipuncture / Unknown 08/19/2024 4:29 PM EST 08/19/2024 4:29 PM EST Angel Snow MD LAB BLOOD ORDERABLES Final Resu lt [facility] [address] [place] [address], * Urine Albumin Creatinine Ratio (03/16/2023) Urine Albumin Creatinine Ratio ABSTRACTED Historical Provider HEALTH MAINTENANCE Final Result from Last 3 Months or Most Recently Relevant to Health Maintenance Insurance [facility] MEDICAID ADVANTAGE Care Teams Children Counselor Relationship Specialty Start Date End Date Angel Snow MD [address] [place] [phone] PCP - General Internal Medicine 04/02/19
--- OUTSIDE RECORDS SUMMARY | 2024-11-07 11:10 | XMS_ITS | Clinical Summary ---
Author Organization [facility] Address [address] [place] [address] Care Team Providers Care Administrative Law Judge Name Role Phone Angel Snow MD Primary Care Provider [phone] Social History Tobacco Use Types Packs/Day Years [...] age to complete this topic Care Teams Administrative Law Judge Relationship Specialty Start Date End Date Angel Snow MD PCP - General Internal Medicine 10/13/20
== END 2024-11-07 10:34 | disposition home or self-care (01) ==
LOC: HO.PMC 09:55
PROVIDERS: PCP Internal Medicine; Visit Provider Registered Nurse Emergency
DX: R42 Dizziness and giddiness (principal); M47.812 Spondylosis without myelopathy or radiculopathy, cervical region; R51.9 Headache, unspecified; G89.29 Other chronic pain; M48.02 Spinal stenosis, cervical region
CPT/HCPCS: 99213; G2211

== ENCOUNTER → 2024-11-07 09:54 | Outpatient (BNVA) | payer MEDICARE, SELFPAY | PROVIDERS: PCP Internal Medicine; Visit Provider Registered Nurse Emergency | DX: M47.812 Spondylosis without myelopathy or radiculopathy, cervical region (principal); M48.02 Spinal stenosis, cervical region; R42 Dizziness and giddiness; R51.9 Headache, unspecified; G89.29 Other chronic pain | CPT/HCPCS: 99212 ==

== ENCOUNTER 2025-03-16 08:48 | Outpatient (AMB) | payer MEDICARE, SELFPAY ==
[2025-03-16 08:51] VITALS: BP 128/82; PULSE 70; O2SAT 98; BMI 23.9
--- NOTE | 2025-03-16 08:51 | MHC.OFFVIS ---
Vital Signs 03/16/25 08:51 Height 5 ft 4 in Weight 139 lb 8 oz BMI 23.9 BP 128/82 Blood Pressure Location Rt brachial Pulse 70 Pulse Source Pulse Oximeter Pulse Oximetry (%) 98 Oxygen Delivery Method Room Air Intake Visit Reasons: Follow up Cyber Defense Analyst Required: Yes Cyber Defense Analyst Services: Cyber Defense Analyst Offered & Declined Cyber Defense Analyst Name: Daughter to interpret Accompanied by: Daughter Allergies No Known Allergies Allergy (Verified 03/16/25 08:57) Medication List - Last Reconciled 03/16/25 by Porsche Langston MD celecoxib mg PO cholecalciferol (vitamin D3) 50 mcg PO DAILY citalopram 40 mg PO DAILY lisinopril 20 mg PO DAILY magnesium oxide 400 mg PO DAILY memantine 28 mg PO DAILY quetiapine 25 mg PO BEDTIME rosuvastatin 10 mg PO BEDTIME HPI Comments Details: 84y/o female comes for follow up of neck pain, vertigo and headaches. she is accompanied by her daughter who helps with the history. she was seen here more than 1 year ago . she was following up with pain management and had good pain relief but the family decline neurostim- which needs to be turned off in 8 hrs and they were worried that she will have problems because of her cognition. Her cognition worsened and she has more confusion and delusions in the evenings. Neuropsych was c/w modertae dementia Her MRI C spine form 2021 showed multilevel deg changes with mild cord impingement. she also has h/o vertigo and headaches.3-4 /week The headaches have increased recently.The headaches are mostly frontal and neck pain.she feels like pounding , with tinnitus, nausea. No light or noise sensitivity She has daily headaches and takes tylenol or motrin.. [facility] Medical History (Updated 03/16/25 @ 09:40 by Porsche Langston MD) Dementia Cervical spondylosis Osteopenia HTN (hypertension) Sacroiliitis Osteopenia Hyperlipidemia Diabetes Vulvar itching Hearing loss Anxiety Depression Subarachnoid hemorrhage Colloid cyst of third ventricle Vertigo FH: cholecystectomy Surgical History Hx of appendectomy H/O colonoscopy Family History Mother Diabetes Father Diabetes Sister FHx: stomach cancer Social History Alcohol intake: never Patient Tobacco Use Status: Never used Tobacco Physical Exam Vital Signs: Last Vital Signs Pulse 70 03/16/25 08:51 BP 128/82 03/16/25 08:51 Pulse Ox 98 03/16/25 08:51 Oxygen Delivery Method Room Air 03/16/25 08:51 BMI result Body Mass Index 23.9 Const General: cooperative, healthy appearing and anxious Nutritional Appearance: average body habitus HEENT Head: Yes normal to inspection, Yes normocephalic and Yes atraumatic Eyes Pupils: Equal, round and reactive pupils present Neck Other: dystonia severe tightness and tenderness in left splenius, levator Neuro Other: Cranial nerves: Yes CN's II-XII intact bilaterally, Yes Facial sensation intact/muscles of mastication intact, Yes Equal, round and reactive pupils present, Yes Bilaterally intact EOM present, Yes Normal facial strength present and Yes Midline tongue present Gait exam (Neuro): Other gait observations present (slow mild off balance) Coordination: [id number] test normal Psych Affect: Anxious affect present Assessment & Plan Assessment & Plan (1) 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 Category: Medical (2) Chronic headaches: Comment: likely cervicogenic Code(s): R51.9 - Headache, unspecified; G89.29 - Other chronic pain Category: Medical Qualifiers: Headache type: tension-type Intractability: intractable Qualified Code(s): G44.221 - Chronic tension-type headache, intractable (3) Dementia: Code(s): F03.90 - Unspecified dementia, unspecified severity, without behavioral disturbance, psychotic disturbance, mood disturbance, and anxiety Category: Medical Qualifiers: Dementia type: unspecified type Dementia severity: moderate Dementia behavioral or psychological symptom: with other behavioral disturbance Qualified Code(s): F03.B18 - Unspecified dementia, moderate, with other behavioral disturbance Plan Memantine to Xr 28mg qd- reviewed neuropsych Decrease OTC pain meds Neck exercises- PT Will trial her on quetiapine 25 mg qhs for ing Retrial botox for neck Orders: Orders PT Evaluation and Treatment Today G24.3 - Spasmodic torticollis, G89.29 - Other chronic pain, M47.812 - Spondylosis without myelopathy or radiculopathy, cervical region, R51.9 - Headache, unspecified Medications: New quetiapine 25 mg PO BEDTIME 30 tabs 6RF insomnia Refilled memantine 28 mg PO DAILY 90 ea 3RF Discontinued gabapentin Discontinued Reason: Doctor's Order 300 mg (3 x 100 mg) PO BID 180 caps 3RF Coding Level of Care Code Est Pt Level 4 (42700) Complex EM visit Add On G2211 Diagnoses Spasmodic torticollis G24.3 Chronic tension-type headache, intractable G44.221 Headache type: tension-type Intractability: intractable Moderate dementia with other behavioral disturbance, unspecified dementia type F03.B18 Dementia type: unspecified type Dementia severity: moderate Dementia behavioral or psychological symptom: with other behavioral disturbance
== END 2025-03-16 09:38 | disposition home or self-care (01) ==
LOC: HO.HSMS 08:48
PROVIDERS: PCP Internal Medicine; Visit Provider Psychiatry & Neurology Neurology
DX: G24.3 Spasmodic torticollis (principal); G44.221 Chronic tension-type headache, intractable; F03.B18 Unspecified dementia, moderate, with other behavioral disturbance
CPT/HCPCS: 99214; G2211

== ENCOUNTER → 2025-03-16 08:48 | Outpatient (BNVA) | payer MEDICARE, SELFPAY | PROVIDERS: PCP Internal Medicine; Visit Provider Psychiatry & Neurology Neurology | DX: G24.3 Spasmodic torticollis (principal); G44.221 Chronic tension-type headache, intractable; G89.29 Other chronic pain; F03.90 Unspecified dementia, unspecified severity, without behavioral disturbance, psychotic disturbance, mood disturbance, and anxiety | CPT/HCPCS: 99212 ==

== ENCOUNTER 2025-06-09 09:50 | Outpatient (AMB) | payer MEDICARE, SELFPAY ==
--- NOTE | 2025-06-09 09:59 | A.OFFVIS_ITS ---
Vital Signs 06/09/25 10:00 Height 5 ft 4 in Weight 135 lb 4 oz BMI 23.2 BP 130/68 Blood Pressure Location Rt brachial Position Sitting Pulse 64 Pulse Source Pulse Oximeter Pulse Oximetry (%) 97 Oxygen Delivery Method Room Air Intake Visit Reasons: botox Intake Note: Botox 200 practice supply Foundation Coordinator Required: No Accompanied by: Daughter Allergies No Known Allergies Allergy (Verified 06/09/25 10:00) Medication List - Last Reconciled 06/09/25 by Porsche Langston MD baclofen 10 mg PO BEDTIME celecoxib mg PO cholecalciferol (vitamin D3) 50 mcg PO DAILY citalopram 40 mg PO DAILY lisinopril 20 mg PO DAILY magnesium oxide 400 mg PO DAILY memantine 28 mg PO DAILY quetiapine 25 mg PO BEDTIME rosuvastatin 10 mg PO BEDTIME HPI Comments Details: 84 y/o female comes for treatment of her cervical dystonia ? Side effects including spread of toxin effect, dysphagia, breathing difficulties , bronchitis etc was discussed in detail and the patient agreed to the procedure.An informed consent was obtained ??? Botulinum toxin type A 200units X 1 -was diluted with 4 cc of normal saline at a concentration of 25 units in 0.5cc saline. Lot number [id number] expiration 01/2027 ??? Muscles injected ??? ilya Splenius - 50 units each ??? right levator 50units each ? Total used 150 units Discarded 50 units PFSH Medical History Dementia Cervical spondylosis Osteopenia HTN (hypertension) Sacroiliitis Osteopenia Hyperlipidemia Diabetes Vulvar itching Hearing loss Anxiety Depression Subarachnoid hemorrhage Colloid cyst of third ventricle Vertigo FH: cholecystectomy Surgical History Hx of appendectomy H/O colonoscopy Family History Mother Diabetes Father Diabetes Sister FHx: stomach cancer Social History Alcohol intake: never Patient Tobacco Use Status: Never used Tobacco Physical Exam Vital Signs: Last Vital Signs Pulse 64 06/09/25 10:00 BP 130/68 06/09/25 10:00 Pulse Ox 97 06/09/25 10:00 Oxygen Delivery Method Room Air 06/09/25 10:00 BMI result Body Mass Index 23.2 Const General: cooperative, healthy appearing and anxious Nutritional Appearance: average body habitus HEENT Head: Yes normal to inspection, Yes normocephalic and Yes atraumatic Neck Other: dystonia severe tightness and tenderness in left splenius, levator Neuro Other: Gait exam (Neuro): Other gait observations present (slow mild off balance) Coordination: [id number] test normal Psych Affect: Anxious affect present Office Procedures Botulinum toxin Injection 37348 - Dystonia Procedure code (CPT) selection complete Office Meds onabotulinumtoxinA 200 unit solution for injection Performing Provider: Porsche Langston MD Performing Location: [facility] Administered by: Porsche Langston MD on 06/09/25 10:26 Dose Route Admin Location Dispensed Lot Number Expiration Date [facility] [facility] [employer] 150 unit IM 200 units [id number] [employer] /[employer] Total Dispensed Waste 200 units 25 % Comments: see HPI Assessment & Plan Assessment & Plan (1) 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 Category: Medical Plan Patient tolerated the procedure well she will call with any side effects Orders: Orders AMB Botulinum toxin Injection Today G24.3 - Spasmodic torticollis Medications: New meclizine 12.5 mg PO TID PRN 60 tabs 0RF dizziness Coding Level of Care Code Est Pt Level 1 (62714) Diagnoses Spasmodic torticollis G24.3 CPT Codes Botox Injection - Botox 4: 21252 - Dystonia ([id number])
[2025-06-09 10:00] VITALS: BP 130/68; PULSE 64; O2SAT 97; BMI 23.2
--- OUTSIDE RECORDS SUMMARY | 2025-06-09 11:19 | XMS_ITS | Clinical Summary ---
Author Organization [facility] Address [address] [place] [address] Care Team Providers Care Music Librarian Name Role Phone Unavailable Primary Care Provider Unavailabl e Social History Tobacco Use Types Packs/Day Years Used Date Smoking Tobacco: Never Assessed Comments Unknown Sex and Gender Information Value Date Recorded Sex Assigned at Not on file Legal Sex Female 4:38 PM EDT Gender Identity Not on file Sexual Orientation Not on file Plan of Treatment Health Maintenance Due Date Last Done Comments Advance Care Planning 1940 DTaP/Tdap/Td Vaccines (1 - Tdap) 1961 Pneumococcal Vaccines 50+ (1 of 1 - PCV) 1992 Zoster (Shingles) Vaccine (1 of 2) 1992 RSV Vaccine 50 years and old er and Patients (1 - 1-dose 75+ series) 2017 COVID-19 Vaccine ( - 2023-2 5 season) 2025 Hepatitis B Vaccines Aged Out No long er eligible based on patient's age to complete this topic
--- OUTSIDE RECORDS SUMMARY | 2025-06-09 11:19 | XMS_ITS ---
Author Name [facility] Care Team Organization Name Specialty Phone Email Start Date End Da te [facility] LENNOX DANIELLE Primary Care 06/13/2022 4
--- OUTSIDE RECORDS SUMMARY | 2025-06-09 11:19 | XMS_ITS | Clinical Summary ---
Author Organization [facility] [address] [facility] Address [address] [place] [phone] Phone Care Team Providers Care Grain Handler Name Role Phone Angel Snow MD Primary Care Provider [phone] Allergies No known active allergies Medications diclofenac [...] daily as needed for Pain. 4 Active celecoxib (CeleBREX) 50 mg capsule TAKE 1 CAPSULE BY MOUTH TWICE A DAY 180 capsule 1 5 Active QUEtiapine (SEROquel) 25 mg tablet TAKE 0.5 TABLETS BY MOUTH AT BEDTIME NEEDED FOR OTHER (INSOMNIA). 45 tablet 1 5 Active citalopram (CeleXA) 40 mg tablet TAKE 1 TABLET BY MOUTH 1 TIME EACH DAY. 30 tablet 5 5 Active rosuvastatin (CRESTOR) 10 mg tablet Take 1 tablet (10 mg total) by mouth 1 (one) time each day. 90 tablet 1 5 Active cholecalciferol (VITAMIN D-3) 50 mcg (2,000 unit) tablet Take 1 tablet (2,000 Units total) by mouth 1 (one) time each day. 90 tablet 1 5 Active lisinopriL (PRINIVIL,ZESTR IL) 20 mg tablet Take 1 tablet (20 mg total) by mouth 1 (one) time each day. 90 tablet 1 5 Active magnesium oxide (MAG-OX) 400 mg (241.3 elemental magnesium) tablet Take 1 tablet (400 mg total) by mouth 1 (one) time each day. 90 tablet 1 5 Active Active Problems Problem Noted Date Diagnosed Date Moderate dementia ([facility] V24, [facility] V28) Diabetes mellitus (CMS/HCC V24, [facility] V28) Hyperlipidemia 06/28/2024 Vertigo 12/27/2020 Abnormal brain MRI 10/04/2020 Overview (06/28/2024): Brain MRI: 10/04/20: Rounded 8 mm fluid signal intensity structure at the roof of the 3rd ventricle. White Matter Changes. Neurosurgery consulted October 2020 who recommended repeat scan in 1 year. 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 (CMS/HCC V24) 08/07/2018 Vulvar itching 01/24/2018 Overview (06/28/2024): Last Assessment & Plan: Discussed could be menopause, contact dermatitis, or autoimmune skin condition. She will return for biopsy. In the meantime, pt will use soaks and seal with coconut oil. Given a copy of [facility] guidelines to review. Hearing loss, sensorineural 06/05/2017 Overview (06/28/2024): Mild-mod b/l Osteopenia 04/06/2016 Sacroiliitis ([facility] V24) 07/27/2014 Anxiety 09/27/2009 HTN (hypertension) 09/27/2009 Overview (06/28/2024): Last Assessment & Plan: Reviewed with patient that her BP is significantly elevated today and that she needs to make an appt with her PCP to have this further evaluated and possibly meds adjusted. She understood and agreed. Referral placed to PCP. Encounters Date Type Department Care Team Description 03/17/2025 3:30 PM EDT Office Visit Adult [address] [phone] Vee Roper PA Diet-controlled diabetes mellitus ([facility] V24, [facility] V28) (Primary Dx); Hypertension, unspecified type; Hyperlipidemia, unspecified hyperlipidemia type; Moderate dementia, unspecified dementia type, unspecified whether behavioral, psychotic, or mood disturbance or anxiety ([facility] V24, [facility] V28); Depression, unspecified depression type; Screening for thyroid disorder; Anxiety; Hot flashes from Last 3 Months Immunizations Immunization Administration Dates Next Due Influenza Quadravalent, MDCK [...] 2006 PROCEDURE: HISTORICAL CHOLECYSTECTOMY COLONOSCOPY 07/19/2007 PROCEDURE: NC COLONOSCOPY FLX DX W/COLLJ SPEC WHEN PFRMD; COMMENT: Up to cecum, normal. Repeat in [address] Mancilla ESOPHAGOGASTRODUODENOSCOPY 10/12/2009 PROCEDURE: NC EGD TRANSORAL BIOPSY SINGLE/MULTIPLE; COMMENT: Normal esophagus, gastritis-biopsy:chronic gastritis (H Pylori+), normal SB-biopsy: Nl APPENDECTOMY PROCEDURE: HISTORICAL APPENDECTOMY COLONOSCOPY 07/19/2007 PROCEDURE: HISTORICAL COLONOSCOPY; COMMENT: normal ([place]) OTHER SURGICAL HISTORY 07/26/2017 PROCEDURE: COLON CA SCRN NOT HI RSK IND; COMMENT: normal; would not repeat Medical History Medical History Date Comments Hypertension DX:Hypertension Diabetes mellitus ([facility] V 24, [facility] V28) DX:Diabetes mellitus ([facility]) Hyperlipidemia DX:Hyperlipidemi a Anxiety DX:Anxiety Hearing loss, sensorineural 06/05/2017 DX:H earing loss, sensorineural; COMMENT: Mild-mod b/l Elevated LFTs 06/06/2017 DX:Elevated LFTs 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 ([facility] V24) 08/07/2018 DX:Episode of recurrent abdirahman r depressive disorder ([facility]) Family History Medical History Relation Name Comments [...] Sign Reading Time Taken Comments Blood Pressure 126/54 03/17/2025 2:25 PM EDT Pulse 72 03/17/2025 2:25 PM EDT Temperature 35.9 C (96.7 F) 03/17/2025 2:25 PM EDT Respiratory Rate 16 03/17/2025 2:25 PM EDT Oxygen Saturation 97% 03/17/2025 2:25 PM EDT Inhaled Oxygen Concentration - - Weight 64 kg (141 lb) 03/17/2025 2:25 PM EDT Height 162.6 cm (5' 4 ) 03/17/2025 2:25 PM EDT Body Mass Index 24.2 03/17/2025 2:25 PM EDT Plan of Treatment Upcoming Encounters Date Type Department Care Team (Late st Contact Info) Description 10/06/2025 3:30 PM EST Office Visit Adult Medicine [facility] [address] [place], [place] [phone] Angel Snow MD [address] [place] [address] Health Maintenance Due Date Last Done Comments Diabetes: Annual Foot Exam 1950 Diabetes: Annual Retina Eye Exam 1950 DTaP,Tdap,and Td Vaccines (1 - Tdap) 1961 Zoster Vaccines (2 of 3) 02/24/2016 12/30/2015 RSV Immunization Adult Patients (1 - 1-dose 75+ series) 2017 Falls Risk Assessment 07/15/2022 Medicare Annual Wellness Visit 07/15/2022 Osteoporosis Screening (Bone Density Screening) 07/15/2022 Social Influencers of Health Screening 07/15/2022 Diabetes: Annual Urine Albumin-Creatinine Ratio (uACR) 03/16/2024 03/16/2023 Depression Screening 08/06/2024 COVID-19 Vaccine ( season) 2025 06/10/2021, 11/09/2020, 10/12/2020 Influenza Vaccine (#1) 2025 9, 08/07/2018, 06/05/2017, Additional history exists Diabetes: Blood Sugar Control Test (HGBA1C) 09/17/2025 03/17/2025, 08/19/2024, 02/15/2024, Additional history exists Diabetes: Annual GFR (Glomerular Filtration Rate) 03/17/2026 03/17/2025, 08/19/2024, 02/15/2024, Additional history exists Hypertension/CHF/CAD Annual BMP Blood Test 03/17/2026 03/17/2025, 08/19/2024, 02/15/2024, Additional history exists Cholesterol Screening (Lipid Panel) 03/17/2030 03/17/2025, 08/19/2024, 02/15/2024, Additional history exists Pneumococcal Vaccine: 50+ Years Completed 05/27/2019, 04/06/2016, [...] age to complete this topic Meningococcal B Vaccine Aged Out No l onger eligible based on patient's age to complete this topic RSV Immunization Patients Under 20 months Aged Out No longer eligible based on patient's age to complete this topic Varicella Vaccines Aged Out No longer eligible based on patient's age to complete this topic Procedures Procedure Name Priority Date/Time Associated Diagnosis Comments BASIC METABOLIC PANEL Routine 03/17/2025 3:27 PM EDT Diet-controlled diabetes mellitus ([facility] V24, [facility] V28) Hypertension, unspecified type LIPID PANEL WITH REFLEX TO DIRECT LDL Routine 03/17/2025 3:27 PM EDT Diet-controlled diabetes mellitus ([facility] V24, [facility] V28) Hyperlipidemia, unspecified hyperlipidemia type HEMOGLOBIN A1C Routine 03/17/2025 3:27 PM EDT Diet-controlled diabetes mellitus ([facility] V24, [facility] V28) HM URINE ALBUMIN CREATININE RATIO Routine 03/16/2023 from Last 3 Months or Most Recently Relevant to Health Maintenance Results * (ABNORMAL) Lipid panel with reflex to direct LDL (03/17/2025 3:27 PM EDT) Cholesterol 253(H) 0 - 200 mg/dL LAB CHEMISTRY METHOD 03/17/2025 6:47 PM EDT [facility] Triglycerides 132 0 - 150 mg/dL LAB CHEMISTRY METHOD 03/17/2025 6:47 PM EDT [facility] HDL 102 >=40 mg/dL LAB CHEMISTRY METHOD 03/17/2025 6:47 PM EDT [facility] LDL Calculated 125(H) 0 - 100 mg/dL LAB CHEMISTRY METHOD 03/17/2025 6:47 PM EDT [facility] Comment:Estimated LDL Calcul ated using equation: Total cholesterol - HDL cholesterol - (Triglycerides/5) VLDL Cholesterol Bubba 26.4 mg/dL LAB CHEMISTRY METHOD 03/17/2025 6:47 PM EDT [facility] Non HDL Chol. (LDL+VLDL) 151(H) <145 mg/dL LAB CHEMISTRY METHOD 03/17/2025 6:47 PM EDT [facility] Chol/HDL Ratio 2.5 0.0 - 4.4 LAB CHEMISTRY METHOD 03/17/2025 6:47 PM EDT [facility] Blood Venous blood specimen / Unknown Venipuncture / Unknown 03/17/2025 3:27 PM EDT 03/17/2025 3:27 PM EDT Vee MUNOZ LAB BLOOD ORDERABLES Fi nal Result [facility] [address] [place] [address], * (ABNORMAL) Hemoglobin A1c (03/17/2025 3:27 PM EDT) Hemoglobin A1C 6.5(H) <6.5 % LAB CHEMISTRY METHOD 03/17/2025 8:23 PM EDT [facility] Mean Bld Glu Estim. 140 mg/dL LAB CHEMISTRY METHOD 03/17/2025 8:23 PM EDT [facility] Blood Venous blood specimen / Unknown Venipuncture / Unknown 03/17/2025 3:27 PM EDT 03/17/2025 3:27 PM EDT Vee MUNOZ LAB BLOOD ORDERABLES Fi nal Result [facility] [address] [place] [address], [place] [phone] * (ABNORMAL) Basic metabolic panel (03/17/2025 3:27 PM EDT) Sodium 144 133 - 145 mmol/L LAB CHEMISTRY METHOD 03/17/2025 6:47 PM [facility] Potassium 4.4 3.5 - 5.5 mmol/L LAB CHEMISTRY METHOD 03/17/2025 6:47 PM [facility] Chloride 110 96 - 110 mmol/L LAB CHEMISTRY METHOD 03/17/2025 6:47 PM [facility] CO2 30 21 - 32 mmol/L LAB CHEMISTRY METHOD 03/17/2025 6:47 PM [facility] Anion Gap 4 3 - 11 LAB CHEMISTRY METHOD 03/17/2025 6:47 PM [facility] Glucose 146(H) 70 - 100 mg/dL LAB CHEMISTRY METHOD 03/17/2025 6:47 PM [facility] BUN 21 5 - 25 mg/dL LAB CHEMISTRY METHOD 03/17/2025 6:47 PM [facility] Creatinine 0.88 0.50 - 1.10 mg/dL LAB CHEMISTRY METHOD 03/17/2025 6:47 PM [facility] eGFR 66 >=60 mL/min/1. 73m2 LAB CHEMISTRY METHOD 03/17/2025 6:47 PM [facility] Comment:Calculation based on the Chronic Kidney Disease Epidemiology Collaboration (CKD-EPI) equation refit without adjustment for race. BUN/Creatinine Ratio 23.9 LAB CHEMISTRY METHOD 03/17/2025 6:47 PM EDT [facility] Calcium 9.5 8.5 - 10.5 mg/dL LAB CHEMISTRY METHOD 03/17/2025 6:47 PM EDT [facility] Blood Venous blood specimen / Unknown Venipuncture / Unknown 03/17/2025 3:27 PM EDT 03/17/2025 3:27 PM EDT Vee MUNOZ LAB BLOOD ORDERABLES Fi nal Result [facility] [address] [place] [address], * Urine Albumin Creatinine Ratio (03/16/2023) HM Urine Albumin Creatinine Ratio ABSTRACTED us Historical Provider HEALTH MAINTENANCE Final Result from Last 3 Months or Most Recently Relevant to Health Maintenance Insurance [employer] Care Teams Grain Handler Relationship Specialty Start Date End [place] [phone] PCP - General Internal Medicine 04/02/19
--- OUTSIDE RECORDS SUMMARY | 2025-06-09 11:19 | XMS_ITS | Clinical Summary ---
Author Organization [facility] Address [address] [place] [address] Care Team Providers Care Plate Shop Helper Name Role Phone Angel Snow MD Primary Care Provider Social History Tobacco Use Types Packs/Day Years [...] 1-dose 75+ series) 2017 Influenza Vaccine (#1) 2025 9, 08/07/2018, 06/05/2017, Additional history exists Pneumococcal Vaccine Completed 05/27/2019, 04/06/20 16 Hepatitis B Vaccines Aged Out No long er eligible based on patient's age to complete this topic RSV Ped < 20 months Aged Out No longe r eligible based on patient's age to complete this topic Care Teams Plate Shop Helper Relationship Specialty Start Date End Date Angel Snow MD PCP - General Internal Medicine 10/13/20
== END 2025-06-09 10:55 | disposition home or self-care (01) ==
LOC: HO.HSMS 09:50
PROVIDERS: PCP Internal Medicine; Visit Provider Psychiatry & Neurology Neurology
DX: G24.3 Spasmodic torticollis (principal)
CPT/HCPCS: 64616

== ENCOUNTER → 2025-06-09 09:50 | Outpatient (BNVA) | payer MEDICARE, SELFPAY | PROVIDERS: PCP Internal Medicine; Visit Provider Psychiatry & Neurology Neurology | DX: G24.3 Spasmodic torticollis (principal) | CPT/HCPCS: 64616; 99211; J0585 ==

== ENCOUNTER 2025-06-29 07:31 | Outpatient (AMB) | payer MEDICARE, SELFPAY ==
--- NOTE | 2025-06-29 07:32 | A.OFFVIS_ITS ---
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 she was tretaed with botox for her neck 3 weeks ago- she responded for about 1 week and back to baseline now.Her dizziness and headaches accompanies her neck pain cognition is worse . she is accompanied by her daughter who helps with the history. she was seen here more than 1 year ago . she was following up with pain management and had good pain relief but the family decline neurostim- which needs to be turned off in 8 hrs and they were worried that she will have problems because of her cognition. Her cognition worsened and she has more confusion and delusions in the evenings. Neuropsych was c/w moderate dementia Her MRI C spine form 2021 showed multilevel deg changes with mild cord impingement. she also has h/o vertigo and headaches.3-4 /week The headaches have increased recently.The headaches are mostly frontal and neck pain.she feels like pounding , with tinnitus, nausea. No light or noise sensitivity She has daily headaches and takes tylenol or motrin.. [facility] Medical History Dementia Cervical spondylosis Osteopenia HTN (hypertension) Sacroiliitis Osteopenia Hyperlipidemia Diabetes Vulvar itching Hearing loss Anxiety Depression Subarachnoid hemorrhage Colloid cyst of third ventricle Vertigo FH: cholecystectomy Surgical History Hx of appendectomy H/O colonoscopy Family History Mother Diabetes Father Diabetes Sister FHx: stomach cancer Social History Alcohol intake: never Patient Tobacco Use Status: Never used Tobacco Physical Exam Vital Signs: Last Vital Signs Pulse 76 06/29/25 07:34 BP 152/80 H 06/29/25 07:34 Pulse Ox 98 06/29/25 07:34 Oxygen Delivery Method Room Air 06/29/25 07:34 BMI result Body Mass Index 23.4 Const General: cooperative, healthy appearing and anxious Nutritional Appearance: average body habitus HEENT Head: Yes normal to inspection, Yes normocephalic and Yes atraumatic Neck Other: dystonia severe tightness and tenderness in left splenius, levator Neuro Other: Gait exam (Neuro): Other gait observations present (slow mild off balance) Coordination: [id number] test normal Psych Affect: Anxious affect present Assessment & Plan Assessment & Plan (1) 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 Category: Medical (2) Chronic headaches: Comment: likely cervicogenic Code(s): R51.9 - Headache, unspecified; G89.29 - Other chronic pain Category: Medical Qualifiers: Headache type: tension-type Intractability: intractable Qualified Code(s): G44.221 - Chronic tension-type headache, intractable (3) Dementia: Code(s): F03.90 - Unspecified dementia, unspecified severity, without behavioral disturbance, psychotic disturbance, mood disturbance, and anxiety Category: Medical Qualifiers: Dementia type: unspecified type Dementia severity: moderate Dementia behavioral or psychological symptom: with other behavioral disturbance Qualified Code(s): F03.B18 - Unspecified dementia, moderate, with other behavioral disturbance Plan Memantine to Xr 28mg qd- reviewed neuropsych Decrease OTC pain meds Neck exercises- PT quetiapine 25 mg qhs for sundowning Increase baclofen 20 mg qhs F/u with pain managment of cortisone shot Medications: Changed From baclofen 10 mg PO BEDTIME 90 tabs 1RF To baclofen 20 mg (2 x 10 mg) PO BEDTIME 180 tabs 1RF Coding Level of Care Code Complex visit Add On G2211 Diagnoses Spasmodic torticollis G24.3 Chronic tension-type headache, intractable G44.221 Headache type: tension-type Intractability: intractable Moderate dementia with other behavioral disturbance, unspecified dementia type F03.B18 Dementia type: unspecified type Dementia severity: moderate Dementia behavioral or psychological symptom: with other behavioral disturbance
--- OUTSIDE RECORDS SUMMARY | 2025-06-29 07:33 | XMS_ITS | Clinical Summary ---
Author Organization [facility] [address] [facility] Address [address] [place] [phone] Phone Care Team Providers Care Press Feeder Broomcorn Name Role Phone Angel Snow MD Primary Care Provider [phone] Allergies No known active allergies Medications diclofenac [...] Problem Noted Date Diagnosed Date Moderate dementia ([facility] V24, [facility] V28) Diabetes mellitus (CMS/HCC V24, [facility] V28) Hyperlipidemia 06/28/2024 Vertigo 12/27/2020 Abnormal brain [...] with coconut oil. Given a copy of [facility] guidelines to review. Hearing loss, sensorineural 06/05/2017 Overview (06/28/2024): Mild-mod b/l Osteopenia 04/06/2016 Sacroiliitis ([facility] V24) 07/27/2014 Anxiety 09/27/2009 HTN (hypertension) 09/27/2009 Overview (06/28/2024): Last Assessment & Plan: Reviewed with patient that her BP is significantly elevated today and that she needs to make an appt with her PCP to have this further evaluated and possibly meds adjusted. She understood and agreed. Referral placed to PCP. Immunizations Immunization Administration Dates Next Due Influenza [...] 2006 PROCEDURE: HISTORICAL CHOLECYSTECTOMY COLONOSCOPY 07/19/2007 PROCEDURE: CO COLONOSCOPY FLX DX W/COLLJ SPEC WHEN PFRMD; COMMENT: Up to cecum, normal. Repeat in [address] Mancilla ESOPHAGOGASTRODUODENOSCOPY 10/12/2009 PROCEDURE: CO EGD TRANSORAL BIOPSY SINGLE/MULTIPLE; COMMENT: Normal esophagus, gastritis-biopsy:chronic gastritis (H Pylori+), normal SB-biopsy: Nl APPENDECTOMY PROCEDURE: HISTORICAL APPENDECTOMY COLONOSCOPY 07/19/2007 PROCEDURE: HISTORICAL COLONOSCOPY; COMMENT: normal (Charo) OTHER SURGICAL HISTORY 07/26/2017 PROCEDURE: COLON CA SCRN NOT HI RSK IND; COMMENT: normal; would not repeat Medical History Medical History Date Comments Hypertension DX:Hypertension Diabetes mellitus ([facility] V 24, [facility] V28) DX:Diabetes mellitus ([facility]) Hyperlipidemia DX:Hyperlipidemi a Anxiety DX:Anxiety Hearing loss, sensorineural 06/05/2017 DX:H earing loss, sensorineural; COMMENT: Mild-mod b/l Elevated LFTs 06/06/2017 DX:Elevated LFTs 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 (CMS/HCC V24) 08/07/2018 DX:Episode of recurrent abdirahman r depressive disorder (HCC) Family History Medical History Relation Name Comments [...] 3:30 PM EST Office Visit Adult Medicine [address] [phone] Angel Snow MD [address] [place] [address] Health Maintenance Due Date Last Done Comments [...] 03/17/2025 3:27 PM EDT Diet-controlled diabetes mellitus ([facility] V24, [facility] V28) Hypertension, unspecified type HEMOGLOBIN A1C Routine 03/17/2025 3:27 PM EDT Diet-controlled diabetes mellitus ([facility] V24, [facility] V28) LIPID PANEL WITH REFLEX TO DIRECT LDL Routine 03/17/2025 3:27 PM EDT Diet-controlled diabetes mellitus ([facility] V24, [facility] V28) Hyperlipidemia, unspecified hyperlipidemia type HM URINE ALBUMIN CREATININE RATIO Routine 03/16/2023 from Last 3 Months or Most Recently Relevant to Health Maintenance Results * (ABNORMAL) Lipid panel with reflex to direct LDL (03/17/2025 3:27 PM EDT) Cholesterol 253(H) 0 - 200 mg/dL LAB CHEMISTRY METHOD 03/17/2025 6:47 PM EDT [facility] Triglycerides 132 0 - 150 mg/dL LAB CHEMISTRY METHOD 03/17/2025 6:47 PM EDT [facility] HDL 102 >=40 mg/dL LAB CHEMISTRY METHOD 03/17[facility]25 6:[facility] LDL Calculated 125(H) 0 - 100 mg/dL LAB CHEMISTRY METHOD 03/17/2025 6:47 PM [facility] Comment:Estimated LDL Calcul ated using equation: Total cholesterol - HDL cholesterol - (Triglycerides/5) VLDL Cholesterol Bubba 26.4 mg/dL LAB CHEMISTRY METHOD 03/17/2025 6:47 PM EDT [facility] Non HDL Chol. (LDL+VLDL) 151(H) <145 mg/dL LAB CHEMISTRY METHOD 03/17/2025 6:47 PM EDT [facility] Chol/HDL Ratio 2.5 0.0 - 4.4 LAB CHEMISTRY METHOD 03/17/2025 6:47 PM EDT [facility] Blood Venous blood specimen / Unknown Venipuncture / Unknown 03/17/2025 3:27 PM EDT 03/17/2025 3:27 PM EDT Vee MUNOZ LAB BLOOD ORDERABLES Fi nal Result Performing Organization Address [facility]/ZIP Co de Phone Number [facility] [address] [place] [address], [place] [phone] * (ABNORMAL) Hemoglobin A1c (03/17/2025 3:27 PM EDT) Hemoglobin A1C 6.5(H) <6.5 % LAB CHEMISTRY METHOD 03/17/2025 8:23 PM EDT [facility] Mean Bld Glu Estim. 140 mg/dL LAB CHEMISTRY METHOD 03/17/2025 8:23 PM EDT [facility] Blood Venous blood specimen / Unknown Venipuncture / Unknown 03/17/2025 3:27 PM EDT 03/17/2025 3:27 PM EDT Vee Roper IN LAB BLOOD ORDERABLES Fi nal Result [facility] [address] [place] [address], [place] [phone] * (ABNORMAL) Basic metabolic panel (03/17/2025 3:27 PM EDT) Sodium 144 133 - 145 mmol/L LAB CHEMISTRY METHOD 03/17/2025 6:47 PM EDT [facility] Potassium 4.4 3.5 - 5.5 mmol/L LAB CHEMISTRY METHOD 03/17/2025 6:47 PM [facility] Chloride 110 96 - 110 mmol/L LAB CHEMISTRY METHOD 03/17/2025 6:47 PM [facility] CO2 30 21 - 32 mmol/L LAB CHEMISTRY METHOD 03/17/2025 6:47 PM [facility] Anion Gap 4 3 - 11 LAB CHEMISTRY METHOD 03/17/2025 6:47 PM [facility] Glucose 146(H) 70 - 100 mg/dL LAB CHEMISTRY METHOD 03/17/2025 6:47 PM [facility] BUN 21 5 - 25 mg/dL LAB CHEMISTRY METHOD 03/17/2025 6:47 PM [facility] Creatinine 0.88 0.50 - 1.10 mg/dL LAB CHEMISTRY METHOD 03/17/2025 6:47 PM [facility] eGFR 66 >=60 mL/min/1. 73m2 LAB CHEMISTRY METHOD 03/17/2025 6:47 PM [facility] Comment:Calculation based on the Chronic Kidney Disease Epidemiology Collaboration (CKD-EPI) equation refit without adjustment for race. BUN/Creatinine Ratio 23.9 LAB CHEMISTRY METHOD 03/17/2025 6:47 PM [facility] Calcium 9.5 8.5 - 10.5 mg/dL LAB CHEMISTRY METHOD 03/17/2025 6:47 PM [facility] Blood Venous blood specimen / Unknown Venipuncture / Unknown 03/17/2025 3:27 PM EDT 03/17/2025 3:27 PM EDT us Vee MUNOZ LAB BLOOD ORDERABLES Fi nal Result [facility] [address] [place], [place] [address] [phone] * Urine Albumin Creatinine Ratio (03/16/2023) Urine Albumin Creatinine Ratio ABSTRACTED Historical Provider HEALTH MAINTENANCE Final Result from Last 3 Months or Most Recently Relevant to Health Maintenance Insurance [employer] [place] [employer] Care Teams Press Feeder Broomcorn Relationship Specialty Start Date End Date Angel Snow MD [address] [place] [phone] PCP - General Internal Medicine 04/02/19
--- OUTSIDE RECORDS SUMMARY | 2025-06-29 07:33 | XMS_ITS | Clinical Summary ---
Author Organization [facility] Address [address] [place] [address] Care Team Providers Care Edger Feeder Name Role Phone Angel Snow MD Primary Care Provider [phone] Social History Tobacco Use Types Packs/Day Years [...] age to complete this topic Care Teams Edger Feeder Relationship Specialty Start Date End Date Angel Snow MD PCP - General Internal Medicine 10/13/20
[2025-06-29 07:34] VITALS: BP 152/80; PULSE 76; O2SAT 98; BMI 23.4
== END 2025-06-29 08:03 | disposition home or self-care (01) ==
LOC: HO.HSMS 07:32
PROVIDERS: PCP Internal Medicine; Visit Provider Psychiatry & Neurology Neurology
DX: G24.3 Spasmodic torticollis (principal); G44.221 Chronic tension-type headache, intractable; F03.B18 Unspecified dementia, moderate, with other behavioral disturbance
CPT/HCPCS: 99214; G2211

== ENCOUNTER → 2025-06-29 07:31 | Outpatient (BNVA) | payer MEDICARE, SELFPAY | PROVIDERS: PCP Internal Medicine; Visit Provider Psychiatry & Neurology Neurology | DX: G24.3 Spasmodic torticollis (principal); G44.221 Chronic tension-type headache, intractable; F03.B18 Unspecified dementia, moderate, with other behavioral disturbance | CPT/HCPCS: 99212 ==